=== PATIENT | female | born 1950 | race Caucasian/White ===

== ENCOUNTER 2016-10-29 18:19 | Inpatient (IN) | payer MEDICARE, OTHER ==
--- NOTE | ~2016-10-29 | CN ---
Consultation Report [facility] [address] [place]. [address] NAME: AAMIR HARRIS : 49 STATUS : ADM IN PAT#: [id number] AGE: 65 ADM/REG DATE : 10/29/16 MR#: [id number] REPORT SERV DATE: 11/07/16 DICTATED BY: MARIELLE RAMIREZ DATE: 11/06/16 REPORT STATUS : Draft TRANSCRIBED BY: MODL DATE: 11/06/16 CARDIOLOGY CONSULTATION DATE OF CONSULTATION: 11/06/2016 REASON FOR CONSULTATION: Possible ventricular tachycardia HISTORY OF PRESENT ILLNESS: The patient is a 65-year-old white female with a past medical history of hypertension, hyperlipidemia, obstructive sleep apnea, COPD, and diabetes, who unfortunately suffered a fall at home resulting in multiple fractures of her right upper extremity. On 10/22/2016, she underwent surgery by Dr. Dmitry Wise with ORIF of the distal radius and the right elbow fracture. She developed respiratory failure postoperatively and is currently in the ICU. She also developed acute kidney injury and has had to be placed on dialysis as well. Early this morning, the patient was noted to have some runs of nonsustained wide-complex tachycardia on the monitor. She has not had any further arrhythmias this afternoon. The patient's vital signs are currently stable, and she is intubated and sedated and in no distress. PAST MEDICAL HISTORY: Includes essential hypertension, hyperlipidemia, obstructive sleep apnea, chronic obstructive pulmonary disease, and diabetes mellitus. PAST SURGICAL HISTORY: Includes hysterectomy, laparoscopic cholecystectomy, appendectomy, tonsillectomy, anterior cervical disk fusion, gastric bypass, , and cardiac catheterization done recently on 06/02/2016. This cardiac cath showed normal coronary arteries and normal left ventricular contractility with an ejection fraction of 65%. SOCIAL HISTORY: The patient is a current smoker. She is . FAMILY HISTORY: Positive for stroke in her mother and liver cancer in her father. Her mother also had an [facility] and coronary artery disease. REVIEW OF SYSTEMS: Unable to be obtained due to the patient being intubated and sedated. PHYSICAL EXAMINATION: VITAL SIGNS: Blood pressure is 115/55, heart rate is 85 and regular showing sinus rhythm on the monitor, respirations are 17 on the ventilator, and temperature is 99.0. The patient is currently on Levophed at 0.03 mcg/kg per minute. GENERAL APPEARANCE: The patient is an obese white female, who is intubated and sedated, in no distress. HEENT: Unremarkable except for the support tubes in place. NECK: Also unremarkable. LUNGS: Clear to auscultation bilaterally. Diminished bases. CARDIOVASCULAR: PMI is nondisplaced. S1 is normal. S2 is narrowly split. No gallop is present. Consultation Report [facility] [id number] [place]. [address] NAME: AAMIR HARRIS : 49 STATUS : ADM IN [facility]#: [id number] AGE: 65 ADM/REG DATE : 10/29/16 MR#: [id number] REPORT SERV DATE: 11/07/16 DICTATED BY: MARIELLE RAMIREZ DATE: 11/06/16 REPORT STATUS : Draft TRANSCRIBED BY: JAXON DATE: 11/06/16 ABDOMEN: Soft and nontender with positive bowel sounds. EXTREMITIES: Show no cyanosis, clubbing, or edema. The right upper extremity has a cast in place. SKIN: Warm and dry with no pallor or icterus. NEURO/PSYCH: The patient is intubated and sedated. LABORATORY AND DIAGNOSTIC DATA: EKG shows normal sinus rhythm at a rate of 84 with Q-waves in the inferior leads suggesting an inferior scar as well as some nonspecific ST-T changes. Telemetry strips show some brief nonsustained runs of wide-complex tachycardia, which appears to be most consistent with ventricular tachycardia. The rate is regular, and there was no atrial arrhythmia noted underlying at baseline. Chemistry profile this morning shows a sodium of 141, potassium 3.9, BUN of 103, creatinine 4.17. Magnesium of 2.4 and phosphorus 7.0. Troponin levels are 0.08, 0.07, and 0.05. IMPRESSION: 1. Nonsustained ventricular tachycardia in the setting of acute illness. 2. History of hypertension. 3. Acute renal failure. 4. Postoperative respiratory failure in a patient with history of chronic obstructive pulmonary disease and obstructive sleep apnea. PLAN: 1. We will obtain an echocardiogram to re-evaluate the patient's left ventricular function. 2. Most likely, the patient will not require any specific treatment, although we may consider adding a beta-joana after the risk of hypotension has passed. Thank you very much for this consultation. I appreciate the opportunity to participate in this patient's care. TOPHER/JAXON Marielle Ramirez NP / [id number] CC: Amanda Gil MD UNKNOWN
--- NOTE | ~2016-10-29 | CN ---
Consultation Report [facility] [address] [place]. [address] NAME: AAMIR HARRIS : 49 STATUS : ADM IN [facility]#: [id number] AGE: 65 ADM/REG DATE : 10/29/16 MR#: [id number] REPORT SERV DATE: 11/06/16 DICTATED BY: GARRETT VELEZ DATE: 11/06/16 REPORT STATUS : Draft TRANSCRIBED BY: MODEnder DATE: 11/06/16 INFECTIOUS DISEASE CONSULTATION DATE OF CONSULTATION: 10/31/2016 LOCATION: MICU bed #4. REASON FOR CONSULTATION: Fevers. HISTORY OF PRESENT ILLNESS: This is a 65-year-old female with a past medical history notable for diabetes, obstructive sleep apnea, COPD, hyperlipidemia, bilateral total knee arthroplasties who was admitted to [facility] on 10/19/2016 after a fall at home which resulted in a complicated right upper extremity fracture with a comminuted proximal humerus fracture, comminuted proximal ulnar fracture, and radial head fracture, and intra-articular distal radius and ulnar styloid fracture. There was concern on admission for possible infection, and the patient was started on ceftriaxone and azithromycin. Chest x-rays did not show any clear pneumonia. Her white blood cell count on admission was 15,200. She underwent surgery by Dr. Dmitry Wise on 10/22/2016October with ORIF of the distal radius fracture and the right elbow fracture and right elbow radial head arthroplasty. The humerus fracture was not operated on at this time. The patient though postoperatively developed respiratory failure and was felt to possibly have a new pneumonia and developed fever, procalcitonin of 28, and worsening appearance of her chest x-ray. On 10/24/2016, her antibiotics were changed to vancomycin and Zosyn and she remains on those antibiotics. She also developed acute kidney injury and was transferred to [facility] on 10/29/2016 for dialysis. The patient's fevers have worsened since transfer with fever going up to 102.9 on 10/31/2016 and white blood cell count going up to 15.4. The procalcitonin is improved, but still at 8.16. The patient herself cannot add to the history at the present time. She has not developed any significant diarrhea. At [facility], there was concern about possible left total knee arthroplasty and infection based on some abnormalities on a plain x-ray. This led to a CT scan of the left lower extremity, which showed an intact cemented left total knee arthroplasty with patellar resurfacing and no evidence of loosening or periprosthetic fracture. PAST MEDICAL HISTORY: As outlined above. In addition, she has a history of a hysterectomy, laparoscopic cholecystectomy, appendectomy, tonsillectomy, anterior cervical disk fusion, gastric bypass, , and some nasal surgery. ALLERGIES: INCLUDE MORPHINE, FUROSEMIDE, PROMETHAZINE, DIPHENHYDRAMINE, AND HYDROCODONE. PRESENT MEDICATIONS: Include vancomycin and Zosyn as mentioned along with Xanax, Lexapro, Flonase, subcutaneous heparin, hydralazine, insulin, Habitrol, Protonix, Seroquel, and Zanaflex. SOCIAL HISTORY: She does smoke a few cigarettes a day, nondrinker, . Consultation Report [address] [place]. [address] NAME: AAMIR HARRIS : 49 STATUS : ADM IN [facility]#: [id number] AGE: 65 ADM/REG DATE : 10/29/16 MR#: [id number] REPORT SERV DATE: 11/06/16 DICTATED BY: GARRETT VELEZ DATE: 11/06/16 REPORT STATUS : Draft TRANSCRIBED BY: JAXON DATE: 11/06/16 FAMILY HISTORY: Notable for a stroke in her mother. Liver cancer in her father. REVIEW OF SYSTEMS: As outlined above. Otherwise, negative or difficult to obtain. PHYSICAL EXAMINATION: GENERAL: This is an obese female who is intubated. VITAL SIGNS: Blood pressure 134/63, pulse 97, maximum fever in the last 24 hours 102.9. She is on the ventilator. HEAD AND NECK: Other than her ventilated status is unremarkable. LUNGS: Show loud rhonchi and coarse breath sounds throughout. CARDIAC: Regular rate and rhythm. Normal S1, S2 without murmur, gallop, or rub. ABDOMEN: Obese, soft. Decreased bowel sounds. Nontender. EXTREMITIES: The patient has bilateral total knee arthroplasties. She has reasonable passive range of motion without evident pain, and there is no significant warmth over both knees. The patient has a PICC line in her left upper extremity covered by dressing. SKIN: Without rash. LABORATORY STUDIES: White blood cell count 15.4, hemoglobin 9.5, platelets 389. Albumin 2.6. Creatinine 3.66 (on dialysis). Arterial blood gas shows pH 7.38, pCO2 of 41, pO2 of 121 on 40% FiO2. Serial chest x-rays are reviewed. 10/31/2016 chest x-ray shows continued venous congestion with diffuse mixed interstitial and alveolar infiltrates, left greater than right, unchanged from previous day's film. MICROBIOLOGY STUDIES: On 10/23/2016, sputum culture grew yeast. On 10/25/2016, sputum culture grew yeast and normal chetan. Urine Legionella and pneumococcal antigens negative. 10/31/2016 sputum Gram stain less than 25 white blood cells, less than 25 epithelial cells, and culture pending. Urinalysis: Small leukocyte esterase, 30 white blood cells. Blood cultures pending. IMPRESSION: The source of the patient's fever is not clear. In addition, she has a persistent leukocytosis in the 11,000 to 15,000 range since her [facility] admission. Her procalcitonin is decreasing. I doubt at this point, she has an inadequately treated pneumonia. Certainly, she is at risk for candidemia. I also doubt total knee arthroplasty infection. PLAN: 1. We will add empiric fluconazole. 2. Likely can stop the vancomycin and Zosyn soon, but we will repeat her procalcitonin on 11/02/2016. 3. We will follow up on the urine, blood, and sputum cultures. Consultation Report [address] [place]. [address] NAME: AAMIR HARRIS : 49 STATUS : ADM IN [facility]#: [id number] AGE: 65 ADM/REG DATE : 10/29/16 MR#: [id number] REPORT SERV DATE: 11/06/16 DICTATED BY: GARRETT VELEZ DATE: 11/06/16 REPORT STATUS : Draft TRANSCRIBED BY: JAXON DATE: 11/06/16 AYANA/JAXON Garrett Velez M.D. / [id number] CC: Amanda Gil MD UNKNOWN
--- NOTE | ~2016-10-29 | HP ---
History And Physical [facility] [id number] [place]. [address] NAME: AAMIR HARRIS : 49 STATUS : ADM IN [facility]#: [id number] AGE: 65 ADM/REG DATE : 10/29/16 MR#: [id number] REPORT SERV DATE: 10/30/16 DICTATED BY: BARBI MEDELLIN DATE: 10/29/16 REPORT STATUS : Draft TRANSCRIBED BY: MODEnder DATE: 10/29/16 DATE OF ADMISSION: 10/29/2016 This is an acceptance H and P of Ms. Harris as she is being transferred from [facility] where she was seen by our partners. Ms. Harris was admitted because of a significant fall, had trauma with multiple fractures, underwent surgery, and had persistent postoperative respiratory failure, and her course was also complicated by acute kidney injury, now requiring renal replacement therapy, so she was transferred for renal replacement therapy while in the intensive care unit. She fell at home down approximately 7 steps, had fractures to her shoulders, elbow, and wrist, was found to have acute on chronic kidney disease with acute kidney injury on chronic kidney disease. Significant elevation of creatinine and potassium. She was taken to the OR, stabilized, but because of her COPD, thick secretions, and multiple other medical problems, she remained intubated. As noted above, she is being transferred for consideration of hemodialysis. Past Medical history, social history, and family history were all reviewed by our partners at [facility], but of note, she has significant COPD and is an active smoker, still smokes about four to five cigarettes a day at the time of admission. Review of 10 systems cannot be obtained since the patient is intubated, sedated, on mechanical ventilation. PHYSICAL EXAMINATION: GENERAL: On exam today, on arrival, she is sedated, intubated, on mechanical ventilation. HEENT: Normocephalic and atraumatic. NECK: Supple. No lymphadenopathy. No JVD. CHEST: Symmetrical with good expansion bilaterally. She has bilateral crackles throughout. CARDIOVASCULAR: She has S1 and S2, which are regular in rate and rhythm. ABDOMEN: Benign but obese. EXTREMITIES: She has some edema. No clubbing. No cyanosis. ASSESSMENT AND PLAN: 1. Respiratory failure. She has a combination of postoperative respiratory failure complicated by acute on chronic kidney disease and underlying chronic obstructive pulmonary disease, obstructive sleep apnea, tobacco abuse up to the time of admission. She will remain on mechanical ventilation now. We will have switched her to pressure cycled ventilation because of high pressures requiring fairly low tidal volumes. We reduced her PEEP since she is still saturating fairly well on 50% FiO2. She will remain on bronchodilator protocol and her other maintenance medications from this admission thus far. 2. She has acute kidney injury and Nephrology has been seeing her in consultation at the [facility] and has orders to initiate hemodialysis. The patient will be monitored and will remain on deep venous thrombosis and gastrointestinal prophylaxis. Care was discussed with nursing staff tonight on arrival. History And Physical [address] [address] NAME: AAMIR HARRIS : 49 STATUS : ADM IN [facility]#: [id number] AGE: 65 ADM/REG DATE : 10/29/16 MR#: [id number] REPORT SERV DATE: 10/30/16 DICTATED BY: BARBI MEDELLIN DATE: 10/29/16 REPORT STATUS : Draft TRANSCRIBED BY: JAXON DATE: 10/29/16 CRISTOPHER/JAXON Barbi Medellin M.D. / [id number] CC: Amanda Gil MD
--- NOTE | ~2016-10-29 | DS ---
Discharge Summary [facility] [address] [place]. [address] NAME: AAMIR HARRIS : 49 STATUS : DIS IN PAT#: [id number] AGE: 65 ADM/REG DATE : 10/29/16 MR#: [id number] REPORT SERV DATE: 12/19/16 DICTATED BY: DONN EVANS DATE: 12/19/16 REPORT STATUS : Draft TRANSCRIBED BY: MODL DATE: 12/19/16 ADMISSION DATE: 10/29/2016 DISCHARGE DATE: 11/15/2016 SUMMARY DATE OF : 11/15/2016. DIAGNOSES: 1. Acute hypercapnic and hypoxic respiratory failure. 2. Acute respiratory distress syndrome. 3. Stenotrophomonas pneumonia. 4. Shock. 5. Acute renal failure. 6. Deep venous thrombosis. 7. Rosalina urinary tract infection. 8. Type 2 diabetes. SUMMARY: Please see dictated history and physical, consult notes and interim discharge summaries as well as the patient's chart with progress notes for full history of presentation and hospital course. BRIEF SUMMARY: The patient was a 65-year-old white female with a past medical history of COPD, who initially was admitted to [facility] after she fell and suffered multiple fractures. Her hospital course there was complicated by persistent postoperative respiratory failure as well as acute renal failure. The patient was transferred to our facility on 10/29/2016 for continuous renal replacement therapy. Here, she had a complicated ICU course and developed persistent acute hypercapnic and hypoxic respiratory failure with acute respiratory distress syndrome as well as Stenotrophomonas pneumonia and was unable to be weaned from the ventilator. She also had several other acute issues such as shock, acute renal failure, a DVT, a Rosalina urinary tract infection. The patient continued to do poorly over several weeks in the ICU as she was unable to be weaned from the ventilator. She was also unable to come off continuous renal replacement therapy over this time as well. After being on the ventilator for several weeks, she was still requiring very high ventilator support. The family understood that she was not going to do well. They decided to make her a do not resuscitate and withdrew care on 11/15/2016. The patient in the MICU and the patient's family was at bedside and grieving appropriately. GEO/JAXON Donn Evans MD / [id number] Discharge Summary [facility] [address] [place]. [address] NAME: AAMIR HARRIS : 48 STATUS : DIS IN PAT#: [id number] AGE: 65 ADM/REG DATE : 10/29/16 MR#: [id number] REPORT SERV DATE: 12/19/16 DICTATED BY: DONN EVANS DATE: 12/19/16 REPORT STATUS : Draft TRANSCRIBED BY: JAXON DATE: 12/19/16 CC: Amanda Gil MD
--- NOTE | ~2016-10-29 | IDS ---
Interim Discharge Summary [facility] [address] [place]. [address] NAME: AAMIR HARRIS : 48 STATUS : ADM IN PAT#: [id number] AGE: 65 ADM/REG DATE : 10/29/16 MR#: [id number] REPORT SERV DATE: 11/14/16 DICTATED BY: KIRA FOLEY DATE: 11/14/16 REPORT STATUS : Draft TRANSCRIBED BY: MODL DATE: 11/14/16 ADMISSION DATE: 10/29/2016 DISCHARGE DATE: This is a 65-year-old patient, who was admitted to the [facility] on the 10/19 after she suffered a fall and had a broken wrist, elbow, and shoulder fracture. She was seen by Dr. Dmitry Wise and actually had a repair of the wrist and elbow, put in a splint, and then the shoulder fracture still remains. The patient was hypoxic postoperatively, was seen by Dr. Pelletier. She unfortunately failed extubation and required re-intubation, and there was some concern about a pneumonia since thick pulmonary secretions were noted. The patient carries a diagnosis of COPD and has a long history of smoking and had ongoing smoking even prior to her admission at [facility]. The patient was transferred to this facility, mostly to initiate dialysis, and she developed CELESTINO. Upon arrival here, the patient was noted to be febrile despite being on antibiotics, Zosyn and vancomycin. Infectious Diseases were consulted and have been following her since she was transferred here. So, a Vas-Cath was placed by Vascular Surgery, and the patient underwent intermittent dialysis at first. Dr. Velez saw the patient, continued the vancomycin and Zosyn with addition of empiric fluconazole that was added at 200 mg a day. The patient has been re-cultured multiple times during her hospitalization here, and all blood cultures that have been done so far including 10/31, 11/04, 11/09, 11/11, and 11/13 are all negative. The patient does have a right PICC line that she has had since her transfer here. Unfortunately, there is limited space for another PICC line since she has the right arm in a cast; so, if this line needs to be removed for any reason, she will probably need at least a left IJ but so far, we have been able to use the PICC line. Other cultures including stool for C. diff which was negative; respiratory cultures, the only positive culture was that from the that grew out Stenotrophomonas maltophilia and is currently being treated with Bactrim since the patient continued to have fevers and leukocytosis. Urine cultures have not grown anything bacterial but did grow out Rosalina glabrata from culture on 11/11. The patient seemed to slowly improve; however, over this past weekend, the patient then continued to worsen, became more hypoxic, difficult to oxygenate, cultures remained negative, repeat urine Legionella antigen was sent and was negative; however, lower extremity Dopplers did show that the patient had a right femoral DVT. Because of this finding, the patient was started on heparin and actually has made some improvement with regard to her oxygenation. That being said, the patient did require paralytics and sedation in order to improve her oxygenation. So far, as of today, the , she is down to an FiO2 of 50% and PEEP of 10, and we will continue to wean the FiO2 followed by the PEEP. So, it is possible that the patient might have had a pulmonary embolus. Bedside quick look echo was done, showed no pericardial effusion. To my examination, the right ventricle did not seem to be markedly enlarged. 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 She has been on and off Levophed and was started on stress-dose steroids, Solu-Cortef 100 mg IV q.8 since the . Today on the , she actually is off Levophed, and I will begin at a slow Solu-Cortef taper. Interim Discharge Summary [address] [place]. [address] NAME: AAMIR HARRIS : 48 STATUS : ADM [facility]#: [id number] AGE: 65 ADM/REG DATE : 10/29/16 MR#: [id number] REPORT SERV DATE: 11/14/16 DICTATED BY: KIRA FOLEY DATE: 11/14/16 REPORT STATUS : Draft TRANSCRIBED BY: MODEnder DATE: 11/14/16 Leukocytosis continues to improve today, so will stay the course of antibiotics and lead change of any antibiotic therapy to Infectious Diseases. The patient has a history of smoking, COPD, and AMARIS. Continue bronchodilator protocol. There have been issues with anemia in this patient. She has been started on the heparin. We are not able to transport her for any CT scan, and given her renal function, she is really not a candidate for CTA and this would not make a difference in treatment of her DVT. So, we will stay the course with the heparin and eventually transition her to Coumadin. We did have to transfuse some blood over the last few days, but her hemoglobin seems to have stabilized, and we will continue to follow that. Diabetes mellitus type 2. She is on a sliding insulin scale. ENT has been consulted, Dr. Luis Daniel Torres, who has been by to check on the patient several times since she more than likely will need a tracheostomy if she continues to improve and because of her high O2 requirements and PEEP, this was not feasible over this past week but may be if she continues to improve and they will need to be notified. Code status has been discussed with the daughter at great length, and currently, the patient is a no shock, no CPR, and no medications to treat life-threatening arrhythmias. We are to continue all supportive care and can add extra pressors if needed, with the caveat that if she continues to deteriorate and is not responsive to further therapy, discussion then would have to be had with the daughter to see if we could either withdraw care or not. This has been discussed with them at length on several occasions including the whole family. So, this is a summary of this patient's hospital course, thus far. There seems to be some improvement, and so I would recommend to at least continue current care throughout the weekend, and if she continues to improve, consider tracheostomy and further aggressive care. /MODEnder Kira Foley M.D. / [id number]
[~2016-10-29 18:19] MED LIST: C5; CALTRAT600 PO; COZ50 PO; DSS PO; FLEX PO; FLEXERIL5 MG PO; FLONASE NAS; FORTAMET500 MG PO; GLUMETZA500 MG PO; IRON325 MG PO; KLOR-CON M2020 MEQ PO; LEXAPRO20 PO; MOBIC15 MG PO; NEXIUM40 PO; PCET PO; PLAVIX PO; PRAVACHOL40 MG PO; PREM.3B PO; PRIN20 PO; PROAIR HFA INH; SEROQUEL XR150 MG PO; SYMBICORT 160/41 INH INH; ULTRAM50 PO; VITD PO; X5 PO; XANAX1 MG PO; ZANAFLEX 4 MG TA4 MG PO; ZOFRAN4 PO; [UNRECOGNIZED DRUG - OTHER]; [UNRECOGNIZED DRUG - OTHER] PO
[2016-10-30 03:47] LABS: CARBOXYHEMOGLOBIN 1.5 % (0-3); HCO3 (ACTUAL BICARBONATE) 22.3 MEQ/L (23-27); HEMOBLOGIN CONTENT 8.1 G/DL (12-16); INSTRUMENT SERIAL # 8083; METHEMOGLOBIN 0.3 % (0-3); O2 CONTENT 11.2 VOL% (18-24); PCO2 (CO2 TENSION) 41 MMHG (35-45); PO2 (O2 TENSION) 118 MMHG (79-93); SAMPLE Arterial; pH 7.36 (7.37-7.43)
[2016-10-30 03:48] LABS: ALLENS TEST Pos; MODE PCV +30; OPERATOR ID 32193
[2016-10-30 05:02] LABS: HEMATOCRIT 25.4 % (36.0-48.0); HEMOGLOBIN 8.4 g/dL (12.0-16.0); MEAN CORPUSCULAR HEMOGLOB 30.3 pg (26.0-34.0); PLATELET COUNT 295 10/3/uL (150-400); RBC DISTRIBUTION WIDTH 15.9 % (12.0-16.0); RED CELL COUNT 2.77 10/6/uL (4.0-5.6); WHITE BLOOD CELLS 11.6 10/3/uL (4.5-10.5)
[2016-10-30 05:09] LABS: MANUAL DIFF YES %; MEAN CORPUS HGB CONC 33.1 g/dL (32.0-36.0); MEAN CORPUSCULAR VOLUME 91.7 fL (80-100)
[2016-10-30 05:10] LABS: CALCIUM, SERUM 9.1 MG/DL (8.5-10.4); CHLORIDE, SERUM 106 MMOL/L (96-112); CO2 (CARBON DIOXIDE) 24 MMOL/L (24-34); GFR AFRICAN AMERICAN 10 ML/MIN (>=60); GFR NON AFRICAN AMERICAN 9 ML/MIN (>=60); GLUCOSE, SERUM 119 MG/DL (60-99); PHOSPHORUS, SERUM 7.6 MG/DL (2.5-4.5); POTASSIUM, SERUM 3.8 MMOL/L (3.5-5.3); SODIUM, SERUM 145 MMOL/L (135-148)
[2016-10-30 05:11] LABS: BUN (BLOOD UREA NITROGEN) 113 MG/DL (6-23); CREATININE 4.88 MG/DL (0.55-1.02)
[2016-10-30 06:29] LABS: BAND NEUTROPHILS 10 %; BASOPHILS 1 %; BASOPHILS ABSOLUTE (CALC) 0.12 10/3/uL (0.0-0.16); EOSINOPHILS 1 %; EOSINOPHILS ABSOLUTE (CALC) 0.12 10/3/uL (0.0-0.53); IMMATURE GRANS ABSOLUTE (CALC) 0.46 10/3/uL (0.0-0.11); LYMPHOCYTES 22 %; LYMPHOCYTES ABSOLUTE (CALC) 2.55 10/3/uL (0.67-4.30); METAMYELOCYTES 3 %; MONOCYTES 10 %; MONOCYTES ABSOLUTE (CALC) 1.16 10/3/uL (0.21-1.20); MYELOCYTES 1 %; NEUTROPHILS ABSOLUTE (CALC) 7.19 10/3/uL (2.02-8.40); PLATELET ESTIMATE ADQ (ADEQUATE); POLYCHROMASIA 1+ (2-5/OIF) (0-1/OIF); SEGMENTED NEUTROPHIL (0) 52 %; TOTAL NUCLEATED CELLS 100
[2016-10-30 06:30] LABS: HELMET CELLS OCC (0-2/OIF); TARGET CELLS OCC (1-2/OIF) (0-1/OIF); TOXIC GRANULATION SLT; VACUOLATED NEUTROPHILES OCC
[2016-10-30 06:35] LABS: VANCOMYCIN TROUGH 20.9 MCG/ML (10.0-20.0)
[2016-10-31 04:33] LABS: ALLENS TEST Pos; BE (BASE EXCESS) -2.3 MEQ/L (0 +/- 2.5); CARBOXYHEMOGLOBIN 0.6 % (0-3); HCO3 (ACTUAL BICARBONATE) 22.6 MEQ/L (23-27); HEMOBLOGIN CONTENT 9.6 G/DL (12-16); INSTRUMENT SERIAL # 8083; METHEMOGLOBIN 0.4 % (0-3); MODE PCV 30; O2 CONTENT 13.4 VOL% (18-24); OPERATOR ID 14661; PCO2 (CO2 TENSION) 40 MMHG (35-45); PO2 (O2 TENSION) 127 MMHG (79-93); SAMPLE Arterial; pH 7.37 (7.37-7.43)
[2016-10-31 04:49] LABS: ALBUMIN 2.6 G/DL (3.5-5.0); CALCIUM, SERUM 9.3 MG/DL (8.5-10.4); CHLORIDE, SERUM 106 MMOL/L (96-112); CO2 (CARBON DIOXIDE) 23 MMOL/L (24-34); POTASSIUM, SERUM 4.2 MMOL/L (3.5-5.3); SODIUM, SERUM 146 MMOL/L (135-148)
[2016-10-31 04:55] LABS: BUN (BLOOD UREA NITROGEN) 84 MG/DL (6-23); CREATININE 3.66 MG/DL (0.55-1.02); GFR AFRICAN AMERICAN 14 ML/MIN (>=60); GFR NON AFRICAN AMERICAN 12 ML/MIN (>=60); GLUCOSE, SERUM 158 MG/DL (60-99); PHOSPHORUS, SERUM 5.9 MG/DL (2.5-4.5)
[2016-10-31 05:58] LABS: PROCALCITONIN 8.16 ng/mL (<0.5)
[2016-10-31 07:32] LABS: HEMOGLOBIN 9.5 g/dL (12.0-16.0); MEAN CORPUS HGB CONC 32.8 g/dL (32.0-36.0); MEAN CORPUSCULAR HEMOGLOB 31.1 pg (26.0-34.0); MEAN PLATELET VOLUME 9.2 fL (9.2-13.0); NUCLEATED RED BLOOD CELLS 0.2 /100WBC (0-0); RBC DISTRIBUTION WIDTH 16.1 % (12.0-16.0); RED CELL COUNT 3.05 10/6/uL (4.0-5.6); WHITE BLOOD CELLS 15.4 10/3/uL (4.5-10.5)
[2016-10-31 07:33] LABS: MANUAL DIFF YES %; MEAN CORPUSCULAR VOLUME 95.1 fL (80-100); PLATELET COUNT 389 10/3/uL (150-400)
[2016-10-31 08:01] LABS: BAND NEUTROPHILS 4 %; BURR CELLS 1+ (3-10/OIF) (0-2/OIF); EOSINOPHILS 2 %; EOSINOPHILS ABSOLUTE (CALC) 0.31 10/3/uL (0.0-0.53); IMMATURE GRANS ABSOLUTE (CALC) 0.31 10/3/uL (0.0-0.11); LYMPHOCYTES 16 %; LYMPHOCYTES ABSOLUTE (CALC) 2.46 10/3/uL (0.67-4.30); METAMYELOCYTES 2 %; MONOCYTES 10 %; MONOCYTES ABSOLUTE (CALC) 1.54 10/3/uL (0.21-1.20); NEUTROPHILS ABSOLUTE (CALC) 10.78 10/3/uL (2.02-8.40); PLATELET ESTIMATE ADQ (ADEQUATE); POIKILOCYTOSIS 1+ (5-10/OIF) (0-5/OIF); SEGMENTED NEUTROPHIL (0) 66 %; TOTAL NUCLEATED CELLS 100
[2016-10-31 09:11] LABS: HEPATITIS B SURFACE ANTIGEN NON-REACTIVE (NON-REACT)
[2016-10-31 09:39] LABS: HEPATITIS B CORE AB IGM NON-REACTIVE (NON-REAC); HEPATITIS C ANTIBODY NON-REACTIVE (NON-REACT)
[2016-10-31 09:40] LABS: HIV COMBO NON-REACTIVE (NON REAC)
[2016-10-31 09:41] LABS: HEP A ANTIBODY IGM NON-REACTIVE (NON-REACT)
[2016-10-31 14:10] LABS: ASCORBIC ACID (UR NOT ORDER) NEG (NEG); BILIRUBIN, URINE NEGATIVE (NEG); KETONE, URINE NEGATIVE (NEG); LEUKOCYTE ESTERASE(NOT OR SMALL (NEG); WBC (NOT ORDERED) (RFLEX) 30 (0-5)
[2016-10-31 15:15] LABS: ALLENS TEST Pos; BE (BASE EXCESS) -1.4 MEQ/L (0 +/- 2.5); CARBOXYHEMOGLOBIN 0.8 % (0-3); HCO3 (ACTUAL BICARBONATE) 23.5 MEQ/L (23-27); HEMOBLOGIN CONTENT 12.5 G/DL (12-16); INSTRUMENT SERIAL # 8083; METHEMOGLOBIN 0.3 % (0-3); O2 CONTENT 17.3 VOL% (18-24); PCO2 (CO2 TENSION) 41 MMHG (35-45); PO2 (O2 TENSION) 121 MMHG (79-93); SAMPLE Arterial; pH 7.38 (7.37-7.43)
[2016-11-01 03:51] LABS: ALLENS TEST Pos; BE (BASE EXCESS) -3.2 MEQ/L (0 +/- 2.5); CARBOXYHEMOGLOBIN 0.5 % (0-3); HCO3 (ACTUAL BICARBONATE) 22.7 MEQ/L (23-27); INSTRUMENT SERIAL # 8083; METHEMOGLOBIN 0.3 % (0-3); MODE PCV; O2 CONTENT 12.7 VOL% (18-24); OPERATOR ID 33214; PCO2 (CO2 TENSION) 45 MMHG (35-45); PO2 (O2 TENSION) 140 MMHG (79-93); SAMPLE Arterial; pH 7.33 (7.37-7.43)
[2016-11-01 04:26] LABS: BASOPHILS 0.6 %; BASOPHILS ABSOLUTE 0.09 10/3/uL (0.0-0.16); EOSINOPHILS 1.5 %; EOSINOPHILS ABSOLUTE 0.21 10/3/uL (0.0-0.53); HEMATOCRIT 28.2 % (36.0-48.0); HEMOGLOBIN 9.4 g/dL (12.0-16.0); IMMATURE GRANULOCYTES ABSOLUTE 0.43 10/3/uL (0.0-0.11); LYMPHOCYTES ABSOLUTE 3.04 10/3/uL (0.67-4.30); MEAN CORPUS HGB CONC 33.3 g/dL (32.0-36.0); MEAN CORPUSCULAR VOLUME 95.9 fL (80-100); MEAN PLATELET VOLUME 9.9 fL (9.2-13.0); MONOCYTES 9.6 %; MONOCYTES ABSOLUTE 1.39 10/3/uL (0.21-1.20); NEUTROPHILS 64.3 %; NEUTROPHILS ABSOLUTE 9.31 10/3/uL (2.02-8.40); PLATELET COUNT 453 10/3/uL (150-400); RBC DISTRIBUTION WIDTH 16.3 % (12.0-16.0); RED CELL COUNT 2.94 10/6/uL (4.0-5.6); WHITE BLOOD CELLS 14.5 10/3/uL (4.5-10.5)
[2016-11-01 04:27] LABS: MANUAL DIFF NO %
[2016-11-01 04:39] LABS: ALBUMIN 2.8 G/DL (3.5-5.0); CALCIUM, SERUM 9.7 MG/DL (8.5-10.4); CHLORIDE, SERUM 103 MMOL/L (96-112); CO2 (CARBON DIOXIDE) 24 MMOL/L (24-34); CREATININE 3.34 MG/DL (0.55-1.02); GFR AFRICAN AMERICAN 16 ML/MIN (>=60); GFR NON AFRICAN AMERICAN 14 ML/MIN (>=60); GLUCOSE, SERUM 148 MG/DL (60-99); SODIUM, SERUM 144 MMOL/L (135-148)
[2016-11-01 04:40] LABS: BUN (BLOOD UREA NITROGEN) 79 MG/DL (6-23); PHOSPHORUS, SERUM 7.8 MG/DL (2.5-4.5); POTASSIUM, SERUM 4.5 MMOL/L (3.5-5.3)
[2016-11-01 05:13] LABS: PROCALCITONIN 7.15 ng/mL (<0.5)
[2016-11-02 03:43] LABS: BE (BASE EXCESS) -5.1 MEQ/L (0 +/- 2.5); CARBOXYHEMOGLOBIN 0.1 % (0-3); HCO3 (ACTUAL BICARBONATE) 20.3 MEQ/L (23-27); HEMOBLOGIN CONTENT 10.5 G/DL (12-16); INSTRUMENT SERIAL # 8083; METHEMOGLOBIN 0.4 % (0-3); MODE PCV; O2 CONTENT 14.6 VOL% (18-24); OPERATOR ID 23712; PCO2 (CO2 TENSION) 39 MMHG (35-45); PO2 (O2 TENSION) 119 MMHG (79-93); SAMPLE Arterial; pH 7.34 (7.37-7.43)
[2016-11-02 05:39] LABS: CALCIUM, SERUM 9.3 MG/DL (8.5-10.4); CHLORIDE, SERUM 103 MMOL/L (96-112); CO2 (CARBON DIOXIDE) 21 MMOL/L (24-34); GFR AFRICAN AMERICAN 13 ML/MIN (>=60); GFR NON AFRICAN AMERICAN 11 ML/MIN (>=60); GLUCOSE, SERUM 136 MG/DL (60-99); PHOSPHORUS, SERUM 7.1 MG/DL (2.5-4.5); POTASSIUM, SERUM 4.7 MMOL/L (3.5-5.3); SODIUM, SERUM 141 MMOL/L (135-148)
[2016-11-02 05:40] LABS: BASOPHILS 0.7 %; BASOPHILS ABSOLUTE 0.13 10/3/uL (0.0-0.16); EOSINOPHILS 1.5 %; HEMATOCRIT 30.7 % (36.0-48.0); HEMOGLOBIN 10.1 g/dL (12.0-16.0); IMMATURE GRANULOCYTES 2.3 %; IMMATURE GRANULOCYTES ABSOLUTE 0.46 10/3/uL (0.0-0.11); LYMPHOCYTES 22.6 %; MEAN CORPUS HGB CONC 32.9 g/dL (32.0-36.0); MEAN CORPUSCULAR HEMOGLOB 31.6 pg (26.0-34.0); MEAN CORPUSCULAR VOLUME 95.9 fL (80-100); MEAN PLATELET VOLUME 9.6 fL (9.2-13.0); MONOCYTES 8.7 %; MONOCYTES ABSOLUTE 1.73 10/3/uL (0.21-1.20); NEUTROPHILS 64.2 %; NEUTROPHILS ABSOLUTE 12.76 10/3/uL (2.02-8.40); NUCLEATED RED BLOOD CELLS 0.2 /100WBC (0-0); PLATELET COUNT 419 10/3/uL (150-400); RBC DISTRIBUTION WIDTH 15.9 % (12.0-16.0); WHITE BLOOD CELLS 19.9 10/3/uL (4.5-10.5)
[2016-11-02 05:41] LABS: BUN (BLOOD UREA NITROGEN) 93 MG/DL (6-23); CREATININE 3.88 MG/DL (0.55-1.02); MANUAL DIFF NO %
[2016-11-03 03:40] LABS: BE (BASE EXCESS) -9.9 MEQ/L (0 +/- 2.5); CARBOXYHEMOGLOBIN 0.6 % (0-3); HCO3 (ACTUAL BICARBONATE) 16.1 MEQ/L (23-27); INSTRUMENT SERIAL # 8083; METHEMOGLOBIN 0.2 % (0-3); PCO2 (CO2 TENSION) 36 MMHG (35-45); PO2 (O2 TENSION) 121 MMHG (79-93); pH 7.27 (7.37-7.43)
[2016-11-03 03:41] LABS: HEMOBLOGIN CONTENT 9.5 G/DL (12-16); MODE PCV; O2 CONTENT 13.2 VOL% (18-24); OPERATOR ID 23712; SAMPLE Arterial
[2016-11-03 06:01] LABS: BASOPHILS 0.2 %; BASOPHILS ABSOLUTE 0.05 10/3/uL (0.0-0.16); EOSINOPHILS 0.5 %; EOSINOPHILS ABSOLUTE 0.12 10/3/uL (0.0-0.53); HEMATOCRIT 27.9 % (36.0-48.0); IMMATURE GRANULOCYTES 1.3 %; IMMATURE GRANULOCYTES ABSOLUTE 0.28 10/3/uL (0.0-0.11); LYMPHOCYTES 11.5 %; LYMPHOCYTES ABSOLUTE 2.52 10/3/uL (0.67-4.30); MANUAL DIFF NO %; MEAN CORPUS HGB CONC 32.3 g/dL (32.0-36.0); MEAN CORPUSCULAR HEMOGLOB 30.4 pg (26.0-34.0); MEAN CORPUSCULAR VOLUME 94.3 fL (80-100); MEAN PLATELET VOLUME 9.9 fL (9.2-13.0); MONOCYTES 4.6 %; MONOCYTES ABSOLUTE 1.01 10/3/uL (0.21-1.20); NEUTROPHILS 81.9 %; NEUTROPHILS ABSOLUTE 17.84 10/3/uL (2.02-8.40); PLATELET COUNT 369 10/3/uL (150-400); RBC DISTRIBUTION WIDTH 16.2 % (12.0-16.0); RED CELL COUNT 2.96 10/6/uL (4.0-5.6); WHITE BLOOD CELLS 21.8 10/3/uL (4.5-10.5)
[2016-11-03 06:11] LABS: A/G RATIO 0.7 (0.7-1.9); ALKALINE PHOSPHATASE 121 U/L (45-117); BUN (BLOOD UREA NITROGEN) 147 MG/DL (6-23); CALCIUM, SERUM 8.9 MG/DL (8.5-10.4); CHLORIDE, SERUM 100 MMOL/L (96-112); CO2 (CARBON DIOXIDE) 16 MMOL/L (24-34); CREATININE 5.35 MG/DL (0.55-1.02); GFR AFRICAN AMERICAN 9 ML/MIN (>=60); GFR NON AFRICAN AMERICAN 8 ML/MIN (>=60); GLOBULIN 4.3 G/DL (2.5-4.1); GLUCOSE, SERUM 139 MG/DL (60-99); POTASSIUM, SERUM 5.2 MMOL/L (3.5-5.3); SGOT(AST) 98 U/L (5-40); SGPT(ALT) 74 U/L (5-65); SODIUM, SERUM 138 MMOL/L (135-148); TOTAL BILIRUBIN 0.7 MG/DL (0-1.2); TOTAL PROTEIN 7.3 G/DL (6.0-8.5)
[2016-11-03 07:47] LABS: PROCALCITONIN 4.91 ng/mL (<0.5)
[2016-11-03 16:29] LABS: PREALBUMIN 25.7 MG/DL (17.0-43.0)
[2016-11-04 05:40] LABS: BASOPHILS 0.4 %; BASOPHILS ABSOLUTE 0.08 10/3/uL (0.0-0.16); EOSINOPHILS 0.8 %; EOSINOPHILS ABSOLUTE 0.16 10/3/uL (0.0-0.53); HEMATOCRIT 27.6 % (36.0-48.0); HEMOGLOBIN 9.2 g/dL (12.0-16.0); IMMATURE GRANULOCYTES 1.3 %; IMMATURE GRANULOCYTES ABSOLUTE 0.27 10/3/uL (0.0-0.11); LYMPHOCYTES 15.6 %; LYMPHOCYTES ABSOLUTE 3.28 10/3/uL (0.67-4.30); MEAN CORPUS HGB CONC 33.3 g/dL (32.0-36.0); MEAN CORPUSCULAR HEMOGLOB 31.5 pg (26.0-34.0); MEAN CORPUSCULAR VOLUME 94.5 fL (80-100); MEAN PLATELET VOLUME 9.7 fL (9.2-13.0); MONOCYTES 4.9 %; MONOCYTES ABSOLUTE 1.04 10/3/uL (0.21-1.20); NEUTROPHILS ABSOLUTE 16.24 10/3/uL (2.02-8.40); PLATELET COUNT 395 10/3/uL (150-400); RBC DISTRIBUTION WIDTH 15.7 % (12.0-16.0); RED CELL COUNT 2.92 10/6/uL (4.0-5.6); WHITE BLOOD CELLS 21.1 10/3/uL (4.5-10.5)
[2016-11-04 05:41] LABS: MANUAL DIFF NO %
[2016-11-04 05:46] LABS: CALCIUM, SERUM 9.2 MG/DL (8.5-10.4); CHLORIDE, SERUM 103 MMOL/L (96-112); CO2 (CARBON DIOXIDE) 16 MMOL/L (24-34); GFR AFRICAN AMERICAN 11 ML/MIN (>=60); GFR NON AFRICAN AMERICAN 9 ML/MIN (>=60); GLUCOSE, SERUM 144 MG/DL (60-99); PHOSPHORUS, SERUM 7.7 MG/DL (2.5-4.5); POTASSIUM, SERUM 4.7 MMOL/L (3.5-5.3); SODIUM, SERUM 139 MMOL/L (135-148)
[2016-11-04 05:48] LABS: BUN (BLOOD UREA NITROGEN) 116 MG/DL (6-23)
[2016-11-04 09:49] LABS: ASCORBIC ACID (UR NOT ORDER) 40 (NEG); BILIRUBIN, URINE NEGATIVE (NEG); KETONE, URINE NEGATIVE (NEG); LEUKOCYTE ESTERASE(NOT OR MOD (NEG)
[2016-11-04 09:50] LABS: WBC (NOT ORDERED) (RFLEX) > 182 (0-5)
[2016-11-05 04:55] LABS: BASOPHILS 0.4 %; BASOPHILS ABSOLUTE 0.09 10/3/uL (0.0-0.16); CALCIUM, SERUM 8.7 MG/DL (8.5-10.4); CHLORIDE, SERUM 99 MMOL/L (96-112); EOSINOPHILS 1.2 %; GLUCOSE, SERUM 142 MG/DL (60-99); HEMATOCRIT 26.4 % (36.0-48.0); HEMOGLOBIN 8.7 g/dL (12.0-16.0); IMMATURE GRANULOCYTES 1.7 %; IMMATURE GRANULOCYTES ABSOLUTE 0.42 10/3/uL (0.0-0.11); LYMPHOCYTES 15.4 %; LYMPHOCYTES ABSOLUTE 3.76 10/3/uL (0.67-4.30); MEAN CORPUSCULAR HEMOGLOB 30.7 pg (26.0-34.0); MEAN CORPUSCULAR VOLUME 93.3 fL (80-100); MEAN PLATELET VOLUME 10.1 fL (9.2-13.0); MONOCYTES 4.7 %; MONOCYTES ABSOLUTE 1.15 10/3/uL (0.21-1.20); NEUTROPHILS 76.6 %; NEUTROPHILS ABSOLUTE 18.64 10/3/uL (2.02-8.40); PLATELET COUNT 466 10/3/uL (150-400); RED CELL COUNT 2.83 10/6/uL (4.0-5.6); SODIUM, SERUM 139 MMOL/L (135-148); WHITE BLOOD CELLS 24.4 10/3/uL (4.5-10.5)
[2016-11-05 04:56] LABS: CO2 (CARBON DIOXIDE) 14 MMOL/L (24-34); CREATININE 5.85 MG/DL (0.55-1.02); GFR AFRICAN AMERICAN 8 ML/MIN (>=60); GFR NON AFRICAN AMERICAN 7 ML/MIN (>=60)
[2016-11-05 04:57] LABS: MANUAL DIFF NO %
[2016-11-05 05:51] LABS: BUN (BLOOD UREA NITROGEN) 162 MG/DL (6-23); PHOSPHORUS, SERUM 10.5 MG/DL (2.5-4.5)
[2016-11-06 00:21] LABS: ALLENS TEST Pos; BE (BASE EXCESS) -4.3 MEQ/L (0 +/- 2.5); CARBOXYHEMOGLOBIN 0.6 % (0-3); HCO3 (ACTUAL BICARBONATE) 19.8 MEQ/L (23-27); HEMOBLOGIN CONTENT 9.5 G/DL (12-16); INSTRUMENT SERIAL # 8083; METHEMOGLOBIN 0.2 % (0-3); MODE PCV; O2 CONTENT 13.3 VOL% (18-24); OPERATOR ID 13861; PCO2 (CO2 TENSION) 33 MMHG (35-45); PO2 (O2 TENSION) 120 MMHG (79-93); SAMPLE Arterial
[2016-11-06 04:15] LABS: BASOPHILS 0.5 %; EOSINOPHILS 1.6 %; EOSINOPHILS ABSOLUTE 0.32 10/3/uL (0.0-0.53); HEMATOCRIT 27.9 % (36.0-48.0); HEMOGLOBIN 9.4 g/dL (12.0-16.0); IMMATURE GRANULOCYTES 1.7 %; IMMATURE GRANULOCYTES ABSOLUTE 0.34 10/3/uL (0.0-0.11); LYMPHOCYTES 15.2 %; LYMPHOCYTES ABSOLUTE 2.95 10/3/uL (0.67-4.30); MEAN CORPUS HGB CONC 33.7 g/dL (32.0-36.0); MEAN CORPUSCULAR HEMOGLOB 31.9 pg (26.0-34.0); MEAN CORPUSCULAR VOLUME 94.6 fL (80-100); MEAN PLATELET VOLUME 9.7 fL (9.2-13.0); MONOCYTES 6.9 %; MONOCYTES ABSOLUTE 1.35 10/3/uL (0.21-1.20); NEUTROPHILS 74.1 %; NEUTROPHILS ABSOLUTE 14.41 10/3/uL (2.02-8.40); PLATELET COUNT 450 10/3/uL (150-400); RBC DISTRIBUTION WIDTH 15.8 % (12.0-16.0); RED CELL COUNT 2.95 10/6/uL (4.0-5.6); WHITE BLOOD CELLS 19.5 10/3/uL (4.5-10.5)
[2016-11-06 04:23] LABS: MANUAL DIFF NO %
[2016-11-06 04:30] LABS: A/G RATIO 0.6 (0.7-1.9); ALBUMIN 2.7 G/DL (3.5-5.0); CALCIUM, SERUM 8.7 MG/DL (8.5-10.4); CHLORIDE, SERUM 103 MMOL/L (96-112); GLOBULIN 4.3 G/DL (2.5-4.1); SGOT(AST) 156 U/L (5-40); SGPT(ALT) 154 U/L (5-65); SODIUM, SERUM 141 MMOL/L (135-148); TOTAL BILIRUBIN 0.5 MG/DL (0-1.2)
[2016-11-06 04:31] LABS: BUN (BLOOD UREA NITROGEN) 103 MG/DL (6-23); CO2 (CARBON DIOXIDE) 20 MMOL/L (24-34); CREATININE 4.17 MG/DL (0.55-1.02); GFR AFRICAN AMERICAN 12 ML/MIN (>=60); GFR NON AFRICAN AMERICAN 10 ML/MIN (>=60); POTASSIUM, SERUM 3.9 MMOL/L (3.5-5.3)
[2016-11-06 04:32] LABS: ALKALINE PHOSPHATASE 159 U/L (45-117); GLUCOSE, SERUM 221 MG/DL (60-99)
[2016-11-06 05:27] LABS: PROCALCITONIN 3.57 ng/mL (<0.5)
[2016-11-06 05:47] LABS: TROPONIN I 0.08 NG/ML (<0.05)
[2016-11-07 03:38] LABS: ALLENS TEST Pos; BE (BASE EXCESS) -9.6 MEQ/L (0 +/- 2.5); CARBOXYHEMOGLOBIN 0.1 % (0-3); HCO3 (ACTUAL BICARBONATE) 17.4 MEQ/L (23-27); HEMOBLOGIN CONTENT 10.5 G/DL (12-16); INSTRUMENT SERIAL # 8083; METHEMOGLOBIN 0.3 % (0-3); MODE PCV +30; O2 CONTENT 14.7 VOL% (18-24); OPERATOR ID 14661; PCO2 (CO2 TENSION) 42 MMHG (35-45); PO2 (O2 TENSION) 137 MMHG (79-93); SAMPLE Arterial; pH 7.23 (7.37-7.43)
[2016-11-07 04:54] LABS: ALBUMIN 2.5 G/DL (3.5-5.0); CALCIUM, SERUM 9.2 MG/DL (8.5-10.4); CHLORIDE, SERUM 99 MMOL/L (96-112); CO2 (CARBON DIOXIDE) 17 MMOL/L (24-34); POTASSIUM, SERUM 4.2 MMOL/L (3.5-5.3); SODIUM, SERUM 138 MMOL/L (135-148)
[2016-11-07 04:57] LABS: BUN (BLOOD UREA NITROGEN) 137 MG/DL (6-23); CREATININE 5.24 MG/DL (0.55-1.02); GFR AFRICAN AMERICAN 9 ML/MIN (>=60); GFR NON AFRICAN AMERICAN 8 ML/MIN (>=60); GLUCOSE, SERUM 153 MG/DL (60-99)
[2016-11-07 05:17] LABS: PHOSPHORUS, SERUM 10.1 MG/DL (2.5-4.5)
[2016-11-07 05:35] LABS: BASOPHILS 0.4 %; BASOPHILS ABSOLUTE 0.09 10/3/uL (0.0-0.16); EOSINOPHILS 4.3 %; EOSINOPHILS ABSOLUTE 0.87 10/3/uL (0.0-0.53); HEMATOCRIT 26.5 % (36.0-48.0); HEMOGLOBIN 8.9 g/dL (12.0-16.0); LYMPHOCYTES 13.7 %; LYMPHOCYTES ABSOLUTE 2.78 10/3/uL (0.67-4.30); MEAN CORPUS HGB CONC 33.6 g/dL (32.0-36.0); MEAN CORPUSCULAR HEMOGLOB 31.9 pg (26.0-34.0); MEAN PLATELET VOLUME 9.9 fL (9.2-13.0); MONOCYTES 4.3 %; MONOCYTES ABSOLUTE 0.88 10/3/uL (0.21-1.20); NEUTROPHILS 76.3 %; PLATELET COUNT 379 10/3/uL (150-400); RED CELL COUNT 2.79 10/6/uL (4.0-5.6); WHITE BLOOD CELLS 20.3 10/3/uL (4.5-10.5)
[2016-11-07 05:39] LABS: MANUAL DIFF NO %
[2016-11-07 09:47] LABS: ALLENS TEST Pos; BE (BASE EXCESS) -9.3 MEQ/L (0 +/- 2.5); CARBOXYHEMOGLOBIN 0.5 % (0-3); HCO3 (ACTUAL BICARBONATE) 16.9 MEQ/L (23-27); INSTRUMENT SERIAL # 8083; METHEMOGLOBIN 0.4 % (0-3); MODE CMV; O2 CONTENT 13.7 VOL% (18-24); OPERATOR ID 35188; PCO2 (CO2 TENSION) 38 MMHG (35-45); PO2 (O2 TENSION) 103 MMHG (79-93); SAMPLE Arterial; TIDAL VOLUME 450 ML; pH 7.27 (7.37-7.43)
[2016-11-07 10:42] LABS: A/G RATIO 0.7 (0.7-1.9); ALBUMIN 2.6 G/DL (3.5-5.0); CALCIUM, SERUM 8.6 MG/DL (8.5-10.4); CHLORIDE, SERUM 96 MMOL/L (96-112); CO2 (CARBON DIOXIDE) 18 MMOL/L (24-34); CREATININE 5.62 MG/DL (0.55-1.02); GFR AFRICAN AMERICAN 8 ML/MIN (>=60); GFR NON AFRICAN AMERICAN 7 ML/MIN (>=60); GLOBULIN 3.8 G/DL (2.5-4.1); GLUCOSE, SERUM 157 MG/DL (60-99); POTASSIUM, SERUM 4.7 MMOL/L (3.5-5.3); SGOT(AST) 108 U/L (5-40); SGPT(ALT) 143 U/L (5-65); SODIUM, SERUM 137 MMOL/L (135-148); TOTAL BILIRUBIN 0.6 MG/DL (0-1.2); TOTAL PROTEIN 6.4 G/DL (6.0-8.5); ULTRASENSITIVE TSH 0.979 MCIU/ML (0.358-3.740)
[2016-11-07 10:43] LABS: ALKALINE PHOSPHATASE 138 U/L (45-117); BUN (BLOOD UREA NITROGEN) 151 MG/DL (6-23)
[2016-11-07 15:21] LABS: HEMATOCRIT 25.1 % (36.0-48.0); HEMOGLOBIN 8.5 g/dL (12.0-16.0); MEAN CORPUS HGB CONC 33.9 g/dL (32.0-36.0); MEAN CORPUSCULAR HEMOGLOB 31.8 pg (26.0-34.0); MEAN PLATELET VOLUME 9.2 fL (9.2-13.0); PLATELET COUNT 408 10/3/uL (150-400); RBC DISTRIBUTION WIDTH 15.8 % (12.0-16.0); RED CELL COUNT 2.67 10/6/uL (4.0-5.6); WHITE BLOOD CELLS 24.5 10/3/uL (4.5-10.5)
[2016-11-07 15:22] LABS: MANUAL DIFF YES %
[2016-11-07 15:41] LABS: CALCIUM, SERUM 7.9 MG/DL (8.5-10.4); CHLORIDE, SERUM 96 MMOL/L (96-112); CO2 (CARBON DIOXIDE) 21 MMOL/L (24-34); GLUCOSE, SERUM 165 MG/DL (60-99); POTASSIUM, SERUM 4.4 MMOL/L (3.5-5.3); SODIUM, SERUM 136 MMOL/L (135-148)
[2016-11-07 15:42] LABS: BUN (BLOOD UREA NITROGEN) 135 MG/DL (6-23); CREATININE 4.82 MG/DL (0.55-1.02); GFR AFRICAN AMERICAN 10 ML/MIN (>=60); GFR NON AFRICAN AMERICAN 9 ML/MIN (>=60)
[2016-11-07 15:43] LABS: PHOSPHORUS, SERUM 8.7 MG/DL (2.5-4.5)
[2016-11-07 16:02] LABS: BAND NEUTROPHILS 1 %; EOSINOPHILS 1 %; EOSINOPHILS ABSOLUTE (CALC) 0.25 10/3/uL (0.0-0.53); LYMPHOCYTES 4 %; LYMPHOCYTES ABSOLUTE (CALC) 0.98 10/3/uL (0.67-4.30); MONOCYTES 5 %; MONOCYTES ABSOLUTE (CALC) 1.23 10/3/uL (0.21-1.20); NEUTROPHILS ABSOLUTE (CALC) 22.05 10/3/uL (2.02-8.40); PLATELET ESTIMATE SLT INC (ADEQUATE); RBC MORPHOLOGY NORM (NORMAL); SEGMENTED NEUTROPHIL (0) 89 %; TOTAL NUCLEATED CELLS 100
[2016-11-07 22:16] LABS: BASOPHILS 0.1 %; BASOPHILS ABSOLUTE 0.03 10/3/uL (0.0-0.16); EOSINOPHILS 0.2 %; EOSINOPHILS ABSOLUTE 0.05 10/3/uL (0.0-0.53); HEMATOCRIT 24.9 % (36.0-48.0); HEMOGLOBIN 8.3 g/dL (12.0-16.0); IMMATURE GRANULOCYTES 0.5 %; IMMATURE GRANULOCYTES ABSOLUTE 0.12 10/3/uL (0.0-0.11); LYMPHOCYTES 2.8 %; LYMPHOCYTES ABSOLUTE 0.64 10/3/uL (0.67-4.30); MEAN CORPUS HGB CONC 33.3 g/dL (32.0-36.0); MEAN CORPUSCULAR HEMOGLOB 31.6 pg (26.0-34.0); MEAN CORPUSCULAR VOLUME 94.7 fL (80-100); MEAN PLATELET VOLUME 9.2 fL (9.2-13.0); MONOCYTES 1.7 %; MONOCYTES ABSOLUTE 0.38 10/3/uL (0.21-1.20); NEUTROPHILS 94.7 %; NEUTROPHILS ABSOLUTE 21.56 10/3/uL (2.02-8.40); PLATELET COUNT 367 10/3/uL (150-400); RBC DISTRIBUTION WIDTH 15.9 % (12.0-16.0); RED CELL COUNT 2.63 10/6/uL (4.0-5.6); WHITE BLOOD CELLS 22.8 10/3/uL (4.5-10.5)
[2016-11-07 22:22] LABS: MANUAL DIFF NO %
[2016-11-07 22:32] LABS: BUN (BLOOD UREA NITROGEN) 91 MG/DL (6-23); CALCIUM, SERUM 7.4 MG/DL (8.5-10.4); CHLORIDE, SERUM 98 MMOL/L (96-112); CO2 (CARBON DIOXIDE) 26 MMOL/L (24-34); CREATININE 3.19 MG/DL (0.55-1.02); GFR AFRICAN AMERICAN 17 ML/MIN (>=60); GFR NON AFRICAN AMERICAN 14 ML/MIN (>=60); GLUCOSE, SERUM 194 MG/DL (60-99); POTASSIUM, SERUM 4.1 MMOL/L (3.5-5.3); SODIUM, SERUM 137 MMOL/L (135-148)
[2016-11-08 04:12] LABS: ALLENS TEST Pos; BE (BASE EXCESS) 1.6 MEQ/L (0 +/- 2.5); CARBOXYHEMOGLOBIN 0.3 % (0-3); HCO3 (ACTUAL BICARBONATE) 26.5 MEQ/L (23-27); HEMOBLOGIN CONTENT 8.2 G/DL (12-16); INSTRUMENT SERIAL # 11843; METHEMOGLOBIN 0.5 % (0-3); MODE CMV; O2 CONTENT 11.3 VOL% (18-24); OPERATOR ID 13415; PCO2 (CO2 TENSION) 44 MMHG (35-45); PO2 (O2 TENSION) 103 MMHG (79-93); SAMPLE Arterial; TIDAL VOLUME 450 ML
[2016-11-08 05:43] LABS: A/G RATIO 0.6 (0.7-1.9); ALBUMIN 2.4 G/DL (3.5-5.0); ALKALINE PHOSPHATASE 130 U/L (45-117); CALCIUM, SERUM 7.6 MG/DL (8.5-10.4); CHLORIDE, SERUM 97 MMOL/L (96-112); CO2 (CARBON DIOXIDE) 29 MMOL/L (24-34); GLOBULIN 4.1 G/DL (2.5-4.1); GLUCOSE, SERUM 192 MG/DL (60-99); POTASSIUM, SERUM 4.1 MMOL/L (3.5-5.3); SGOT(AST) 68 U/L (5-40); SGPT(ALT) 114 U/L (5-65); SODIUM, SERUM 137 MMOL/L (135-148); TOTAL BILIRUBIN 0.5 MG/DL (0-1.2); TOTAL PROTEIN 6.5 G/DL (6.0-8.5)
[2016-11-08 05:45] LABS: BUN (BLOOD UREA NITROGEN) 68 MG/DL (6-23); CREATININE 2.35 MG/DL (0.55-1.02); GFR AFRICAN AMERICAN 24 ML/MIN (>=60); GFR NON AFRICAN AMERICAN 21 ML/MIN (>=60); PHOSPHORUS, SERUM 4.6 MG/DL (2.5-4.5)
[2016-11-08 06:12] LABS: BASOPHILS 0.1 %; BASOPHILS ABSOLUTE 0.02 10/3/uL (0.0-0.16); EOSINOPHILS 0 %; HEMATOCRIT 22.8 % (36.0-48.0); IMMATURE GRANULOCYTES 0.3 %; IMMATURE GRANULOCYTES ABSOLUTE 0.06 10/3/uL (0.0-0.11); LYMPHOCYTES ABSOLUTE 0.81 10/3/uL (0.67-4.30); MEAN CORPUSCULAR HEMOGLOB 32.5 pg (26.0-34.0); MEAN CORPUSCULAR VOLUME 92.7 fL (80-100); MEAN PLATELET VOLUME 9.3 fL (9.2-13.0); MONOCYTES 1.6 %; MONOCYTES ABSOLUTE 0.33 10/3/uL (0.21-1.20); NEUTROPHILS ABSOLUTE 18.94 10/3/uL (2.02-8.40); PLATELET COUNT 388 10/3/uL (150-400); RBC DISTRIBUTION WIDTH 15.9 % (12.0-16.0); RED CELL COUNT 2.46 10/6/uL (4.0-5.6); WHITE BLOOD CELLS 20.2 10/3/uL (4.5-10.5)
[2016-11-08 06:13] LABS: MANUAL DIFF NO %; MEAN CORPUS HGB CONC 35.1 g/dL (32.0-36.0)
[2016-11-08 11:01] LABS: BASOPHILS 0.1 %; BASOPHILS ABSOLUTE 0.01 10/3/uL (0.0-0.16); EOSINOPHILS 0.7 %; HEMATOCRIT 21.8 % (36.0-48.0); HEMOGLOBIN 7.5 g/dL (12.0-16.0); IMMATURE GRANULOCYTES 0.6 %; IMMATURE GRANULOCYTES ABSOLUTE 0.08 10/3/uL (0.0-0.11); LYMPHOCYTES 7.4 %; LYMPHOCYTES ABSOLUTE 1.06 10/3/uL (0.67-4.30); MEAN CORPUS HGB CONC 34.4 g/dL (32.0-36.0); MEAN CORPUSCULAR HEMOGLOB 32.5 pg (26.0-34.0); MEAN CORPUSCULAR VOLUME 94.4 fL (80-100); MEAN PLATELET VOLUME 9.1 fL (9.2-13.0); MONOCYTES 4.6 %; MONOCYTES ABSOLUTE 0.66 10/3/uL (0.21-1.20); NEUTROPHILS 86.6 %; NEUTROPHILS ABSOLUTE 12.34 10/3/uL (2.02-8.40); PLATELET COUNT 320 10/3/uL (150-400); RBC DISTRIBUTION WIDTH 15.7 % (12.0-16.0); RED CELL COUNT 2.31 10/6/uL (4.0-5.6); WHITE BLOOD CELLS 14.3 10/3/uL (4.5-10.5)
[2016-11-08 11:03] LABS: MANUAL DIFF NO %
[2016-11-08 11:13] LABS: BUN (BLOOD UREA NITROGEN) 54 MG/DL (6-23); CALCIUM, SERUM 7.5 MG/DL (8.5-10.4); CHLORIDE, SERUM 97 MMOL/L (96-112); CO2 (CARBON DIOXIDE) 29 MMOL/L (24-34); CREATININE 1.77 MG/DL (0.55-1.02); GFR AFRICAN AMERICAN 34 ML/MIN (>=60); GFR NON AFRICAN AMERICAN 29 ML/MIN (>=60); GLUCOSE, SERUM 103 MG/DL (60-99); POTASSIUM, SERUM 3.6 MMOL/L (3.5-5.3); SODIUM, SERUM 138 MMOL/L (135-148)
[2016-11-08 17:11] LABS: BASOPHILS 0.1 %; BASOPHILS ABSOLUTE 0.01 10/3/uL (0.0-0.16); EOSINOPHILS 0.5 %; EOSINOPHILS ABSOLUTE 0.06 10/3/uL (0.0-0.53); HEMATOCRIT 21.4 % (36.0-48.0); HEMOGLOBIN 7.3 g/dL (12.0-16.0); IMMATURE GRANULOCYTES 0.5 %; IMMATURE GRANULOCYTES ABSOLUTE 0.06 10/3/uL (0.0-0.11); LYMPHOCYTES 5.2 %; LYMPHOCYTES ABSOLUTE 0.67 10/3/uL (0.67-4.30); MEAN CORPUS HGB CONC 34.1 g/dL (32.0-36.0); MEAN CORPUSCULAR HEMOGLOB 32.2 pg (26.0-34.0); MEAN CORPUSCULAR VOLUME 94.3 fL (80-100); MEAN PLATELET VOLUME 9.4 fL (9.2-13.0); MONOCYTES 3.7 %; MONOCYTES ABSOLUTE 0.48 10/3/uL (0.21-1.20); NEUTROPHILS ABSOLUTE 11.61 10/3/uL (2.02-8.40); PLATELET COUNT 307 10/3/uL (150-400); RED CELL COUNT 2.27 10/6/uL (4.0-5.6); WHITE BLOOD CELLS 12.9 10/3/uL (4.5-10.5)
[2016-11-08 17:12] LABS: MANUAL DIFF NO %
[2016-11-08 17:24] LABS: BUN (BLOOD UREA NITROGEN) 44 MG/DL (6-23); CALCIUM, SERUM 8.2 MG/DL (8.5-10.4); CHLORIDE, SERUM 96 MMOL/L (96-112); CO2 (CARBON DIOXIDE) 30 MMOL/L (24-34); CREATININE 1.51 MG/DL (0.55-1.02); GFR AFRICAN AMERICAN 41 ML/MIN (>=60); GFR NON AFRICAN AMERICAN 36 ML/MIN (>=60); GLUCOSE, SERUM 142 MG/DL (60-99); PHOSPHORUS, SERUM 3.6 MG/DL (2.5-4.5); POTASSIUM, SERUM 3.6 MMOL/L (3.5-5.3); SODIUM, SERUM 138 MMOL/L (135-148)
[2016-11-08 21:58] LABS: BASOPHILS 0.1 %; BASOPHILS ABSOLUTE 0.01 10/3/uL (0.0-0.16); EOSINOPHILS 0 %; HEMOGLOBIN 6.7 g/dL (12.0-16.0); IMMATURE GRANULOCYTES 0.3 %; IMMATURE GRANULOCYTES ABSOLUTE 0.04 10/3/uL (0.0-0.11); LYMPHOCYTES 4.3 %; LYMPHOCYTES ABSOLUTE 0.55 10/3/uL (0.67-4.30); MEAN CORPUS HGB CONC 34.9 g/dL (32.0-36.0); MEAN CORPUSCULAR HEMOGLOB 32.8 pg (26.0-34.0); MEAN CORPUSCULAR VOLUME 94.1 fL (80-100); MEAN PLATELET VOLUME 8.8 fL (9.2-13.0); MONOCYTES 4.3 %; MONOCYTES ABSOLUTE 0.54 10/3/uL (0.21-1.20); NEUTROPHILS ABSOLUTE 11.53 10/3/uL (2.02-8.40); PLATELET COUNT 265 10/3/uL (150-400); RBC DISTRIBUTION WIDTH 15.8 % (12.0-16.0); RED CELL COUNT 2.04 10/6/uL (4.0-5.6); WHITE BLOOD CELLS 12.7 10/3/uL (4.5-10.5)
[2016-11-08 21:59] LABS: HEMATOCRIT 19.2 % (36.0-48.0)
[2016-11-08 22:00] LABS: MANUAL DIFF NO %
[2016-11-08 22:09] LABS: CALCIUM, SERUM 8.2 MG/DL (8.5-10.4); CHLORIDE, SERUM 96 MMOL/L (96-112); CO2 (CARBON DIOXIDE) 31 MMOL/L (24-34); CREATININE 1.32 MG/DL (0.55-1.02); GFR AFRICAN AMERICAN 49 ML/MIN (>=60); GFR NON AFRICAN AMERICAN 42 ML/MIN (>=60); GLUCOSE, SERUM 170 MG/DL (60-99); POTASSIUM, SERUM 3.9 MMOL/L (3.5-5.3); SODIUM, SERUM 138 MMOL/L (135-148)
[2016-11-08 22:10] LABS: BUN (BLOOD UREA NITROGEN) 38 MG/DL (6-23)
[2016-11-09 04:22] LABS: ALLENS TEST Pos; BE (BASE EXCESS) 3.8 MEQ/L (0 +/- 2.5); CARBOXYHEMOGLOBIN 2.1 % (0-3); HCO3 (ACTUAL BICARBONATE) 29.2 MEQ/L (23-27); HEMOBLOGIN CONTENT 7.4 G/DL (12-16); INSTRUMENT SERIAL # 8087; METHEMOGLOBIN 0.6 % (0-3); O2 CONTENT 9.4 VOL% (18-24); OPERATOR ID 334499; PCO2 (CO2 TENSION) 49 MMHG (35-45); PO2 (O2 TENSION) 66 MMHG (79-93); SAMPLE Arterial; TIDAL VOLUME 450 ML; pH 7.39 (7.37-7.43)
[2016-11-09 04:33] LABS: BASOPHILS 0.1 %; BASOPHILS ABSOLUTE 0.01 10/3/uL (0.0-0.16); EOSINOPHILS 0.1 %; EOSINOPHILS ABSOLUTE 0.01 10/3/uL (0.0-0.53); IMMATURE GRANULOCYTES 0.4 %; IMMATURE GRANULOCYTES ABSOLUTE 0.06 10/3/uL (0.0-0.11); LYMPHOCYTES 6.1 %; LYMPHOCYTES ABSOLUTE 0.97 10/3/uL (0.67-4.30); MEAN CORPUS HGB CONC 33.5 g/dL (32.0-36.0); MEAN CORPUSCULAR HEMOGLOB 31.4 pg (26.0-34.0); MEAN CORPUSCULAR VOLUME 93.7 fL (80-100); MEAN PLATELET VOLUME 9.2 fL (9.2-13.0); MONOCYTES 3.2 %; MONOCYTES ABSOLUTE 0.51 10/3/uL (0.21-1.20); NEUTROPHILS 90.1 %; PLATELET COUNT 299 10/3/uL (150-400); RED CELL COUNT 2.23 10/6/uL (4.0-5.6)
[2016-11-09 04:34] LABS: HEMATOCRIT 20.9 % (36.0-48.0); MANUAL DIFF NO %
[2016-11-09 04:37] LABS: BUN (BLOOD UREA NITROGEN) 38 MG/DL (6-23); CHLORIDE, SERUM 98 MMOL/L (96-112); CO2 (CARBON DIOXIDE) 29 MMOL/L (24-34); CREATININE 1.38 MG/DL (0.55-1.02); GFR AFRICAN AMERICAN 46 ML/MIN (>=60); GFR NON AFRICAN AMERICAN 40 ML/MIN (>=60); GLUCOSE, SERUM 162 MG/DL (60-99); PHOSPHORUS, SERUM 3.8 MG/DL (2.5-4.5); POTASSIUM, SERUM 4.2 MMOL/L (3.5-5.3); SODIUM, SERUM 138 MMOL/L (135-148)
[2016-11-09 04:39] LABS: CALCIUM, SERUM 9.2 MG/DL (8.5-10.4)
[2016-11-09 06:54] LABS: BE (BASE EXCESS) 1.7 MEQ/L (0 +/- 2.5); CARBOXYHEMOGLOBIN 0.8 % (0-3); HCO3 (ACTUAL BICARBONATE) 28.2 MEQ/L (23-27); INSTRUMENT SERIAL # 8083; METHEMOGLOBIN 0.1 % (0-3); PCO2 (CO2 TENSION) 55 MMHG (35-45); PO2 (O2 TENSION) 97 MMHG (79-93); pH 7.33 (7.37-7.43)
[2016-11-09 06:55] LABS: ALLENS TEST Pos; HEMOBLOGIN CONTENT 8.4 G/DL (12-16); O2 CONTENT 11.5 VOL% (18-24); OPERATOR ID 33214; SAMPLE Arterial; TIDAL VOLUME 450 ML
[2016-11-09 10:21] LABS: BASOPHILS 0.1 %; BASOPHILS ABSOLUTE 0.02 10/3/uL (0.0-0.16); EOSINOPHILS 0.1 %; EOSINOPHILS ABSOLUTE 0.01 10/3/uL (0.0-0.53); HEMATOCRIT 22.7 % (36.0-48.0); HEMOGLOBIN 7.6 g/dL (12.0-16.0); IMMATURE GRANULOCYTES 1.1 %; IMMATURE GRANULOCYTES ABSOLUTE 0.19 10/3/uL (0.0-0.11); LYMPHOCYTES 3.4 %; MEAN CORPUS HGB CONC 33.5 g/dL (32.0-36.0); MEAN CORPUSCULAR HEMOGLOB 31.1 pg (26.0-34.0); MEAN PLATELET VOLUME 9.1 fL (9.2-13.0); MONOCYTES 4.5 %; NEUTROPHILS 90.8 %; NEUTROPHILS ABSOLUTE 16.23 10/3/uL (2.02-8.40); PLATELET COUNT 269 10/3/uL (150-400); RBC DISTRIBUTION WIDTH 16.8 % (12.0-16.0); RED CELL COUNT 2.44 10/6/uL (4.0-5.6); WHITE BLOOD CELLS 17.9 10/3/uL (4.5-10.5)
[2016-11-09 10:25] LABS: MANUAL DIFF NO %
[2016-11-09 10:32] LABS: BUN (BLOOD UREA NITROGEN) 29 MG/DL (6-23); CALCIUM, SERUM 8.6 MG/DL (8.5-10.4); CHLORIDE, SERUM 95 MMOL/L (96-112); CO2 (CARBON DIOXIDE) 32 MMOL/L (24-34); CREATININE 1.02 MG/DL (0.55-1.02); GFR AFRICAN AMERICAN 66 ML/MIN (>=60); GFR NON AFRICAN AMERICAN 57 ML/MIN (>=60); GLUCOSE, SERUM 137 MG/DL (60-99); SODIUM, SERUM 138 MMOL/L (135-148)
[2016-11-09 10:56] LABS: PROCALCITONIN 0.91 ng/mL (<0.5)
[2016-11-09 16:54] LABS: BASOPHILS 0.1 %; BASOPHILS ABSOLUTE 0.02 10/3/uL (0.0-0.16); EOSINOPHILS 0.3 %; EOSINOPHILS ABSOLUTE 0.07 10/3/uL (0.0-0.53); HEMATOCRIT 22.9 % (36.0-48.0); HEMOGLOBIN 7.8 g/dL (12.0-16.0); IMMATURE GRANULOCYTES 1.1 %; IMMATURE GRANULOCYTES ABSOLUTE 0.23 10/3/uL (0.0-0.11); LYMPHOCYTES 4.6 %; LYMPHOCYTES ABSOLUTE 0.98 10/3/uL (0.67-4.30); MEAN CORPUS HGB CONC 34.1 g/dL (32.0-36.0); MEAN CORPUSCULAR HEMOGLOB 31.7 pg (26.0-34.0); MEAN CORPUSCULAR VOLUME 93.1 fL (80-100); MEAN PLATELET VOLUME 9.2 fL (9.2-13.0); MONOCYTES 4.8 %; MONOCYTES ABSOLUTE 1.04 10/3/uL (0.21-1.20); NEUTROPHILS 89.1 %; NEUTROPHILS ABSOLUTE 19.14 10/3/uL (2.02-8.40); PLATELET COUNT 299 10/3/uL (150-400); RBC DISTRIBUTION WIDTH 17.1 % (12.0-16.0); RED CELL COUNT 2.46 10/6/uL (4.0-5.6); WHITE BLOOD CELLS 21.5 10/3/uL (4.5-10.5)
[2016-11-09 16:55] LABS: MANUAL DIFF NO %
[2016-11-09 17:10] LABS: BUN (BLOOD UREA NITROGEN) 30 MG/DL (6-23); CALCIUM, SERUM 8.6 MG/DL (8.5-10.4); CHLORIDE, SERUM 98 MMOL/L (96-112); CO2 (CARBON DIOXIDE) 31 MMOL/L (24-34); CREATININE 0.96 MG/DL (0.55-1.02); GFR AFRICAN AMERICAN 71 ML/MIN (>=60); GFR NON AFRICAN AMERICAN 62 ML/MIN (>=60); GLUCOSE, SERUM 147 MG/DL (60-99); POTASSIUM, SERUM 3.6 MMOL/L (3.5-5.3); SODIUM, SERUM 138 MMOL/L (135-148)
[2016-11-09 17:12] LABS: PHOSPHORUS, SERUM 2.6 MG/DL (2.5-4.5)
[2016-11-09 22:57] LABS: BASOPHILS 0.1 %; BASOPHILS ABSOLUTE 0.02 10/3/uL (0.0-0.16); EOSINOPHILS 0.1 %; EOSINOPHILS ABSOLUTE 0.03 10/3/uL (0.0-0.53); HEMATOCRIT 23.6 % (36.0-48.0); IMMATURE GRANULOCYTES ABSOLUTE 0.22 10/3/uL (0.0-0.11); LYMPHOCYTES 3.5 %; LYMPHOCYTES ABSOLUTE 0.74 10/3/uL (0.67-4.30); MANUAL DIFF NO %; MEAN CORPUS HGB CONC 33.9 g/dL (32.0-36.0); MEAN CORPUSCULAR VOLUME 94.4 fL (80-100); MONOCYTES ABSOLUTE 1.07 10/3/uL (0.21-1.20); NEUTROPHILS 90.3 %; NEUTROPHILS ABSOLUTE 19.19 10/3/uL (2.02-8.40); PLATELET COUNT 278 10/3/uL (150-400); RBC DISTRIBUTION WIDTH 17.3 % (12.0-16.0); WHITE BLOOD CELLS 21.3 10/3/uL (4.5-10.5)
[2016-11-09 23:04] LABS: CALCIUM, SERUM 8.4 MG/DL (8.5-10.4); CHLORIDE, SERUM 96 MMOL/L (96-112); CO2 (CARBON DIOXIDE) 32 MMOL/L (24-34); GFR AFRICAN AMERICAN 77 ML/MIN (>=60); GFR NON AFRICAN AMERICAN 67 ML/MIN (>=60); GLUCOSE, SERUM 140 MG/DL (60-99); POTASSIUM, SERUM 3.9 MMOL/L (3.5-5.3); SODIUM, SERUM 138 MMOL/L (135-148)
[2016-11-09 23:05] LABS: BUN (BLOOD UREA NITROGEN) 25 MG/DL (6-23)
[2016-11-10 04:32] LABS: ALLENS TEST Pos; BE (BASE EXCESS) 0.8 MEQ/L (0 +/- 2.5); CARBOXYHEMOGLOBIN 0.9 % (0-3); HCO3 (ACTUAL BICARBONATE) 27.4 MEQ/L (23-27); HEMOBLOGIN CONTENT 8.8 G/DL (12-16); INSTRUMENT SERIAL # 8083; METHEMOGLOBIN 0.2 % (0-3); MODE CMV; O2 CONTENT 11.8 VOL% (18-24); OPERATOR ID 23712; PCO2 (CO2 TENSION) 55 MMHG (35-45); PO2 (O2 TENSION) 82 MMHG (79-93); SAMPLE Arterial; TIDAL VOLUME 450 ML; pH 7.32 (7.37-7.43)
[2016-11-10 05:30] LABS: BASOPHILS 0.1 %; BASOPHILS ABSOLUTE 0.02 10/3/uL (0.0-0.16); EOSINOPHILS 0.2 %; EOSINOPHILS ABSOLUTE 0.05 10/3/uL (0.0-0.53); HEMATOCRIT 23.2 % (36.0-48.0); HEMOGLOBIN 7.7 g/dL (12.0-16.0); IMMATURE GRANULOCYTES 0.7 %; IMMATURE GRANULOCYTES ABSOLUTE 0.14 10/3/uL (0.0-0.11); LYMPHOCYTES 5.2 %; LYMPHOCYTES ABSOLUTE 1.11 10/3/uL (0.67-4.30); MEAN CORPUS HGB CONC 33.2 g/dL (32.0-36.0); MEAN CORPUSCULAR HEMOGLOB 30.9 pg (26.0-34.0); MEAN CORPUSCULAR VOLUME 93.2 fL (80-100); MEAN PLATELET VOLUME 9.2 fL (9.2-13.0); MONOCYTES 5.2 %; MONOCYTES ABSOLUTE 1.11 10/3/uL (0.21-1.20); NEUTROPHILS 88.6 %; NEUTROPHILS ABSOLUTE 19.07 10/3/uL (2.02-8.40); PLATELET COUNT 270 10/3/uL (150-400); RBC DISTRIBUTION WIDTH 17.4 % (12.0-16.0); RED CELL COUNT 2.49 10/6/uL (4.0-5.6); WHITE BLOOD CELLS 21.5 10/3/uL (4.5-10.5)
[2016-11-10 05:33] LABS: MANUAL DIFF NO %
[2016-11-10 05:58] LABS: A/G RATIO 0.9 (0.7-1.9); ALKALINE PHOSPHATASE 141 U/L (45-117); BUN (BLOOD UREA NITROGEN) 24 MG/DL (6-23); CALCIUM, SERUM 8.6 MG/DL (8.5-10.4); CHLORIDE, SERUM 97 MMOL/L (96-112); CO2 (CARBON DIOXIDE) 29 MMOL/L (24-34); CREATININE 0.87 MG/DL (0.55-1.02); GFR AFRICAN AMERICAN 80 ML/MIN (>=60); GFR NON AFRICAN AMERICAN 69 ML/MIN (>=60); GLOBULIN 3.5 G/DL (2.5-4.1); GLUCOSE, SERUM 130 MG/DL (60-99); INTERNATIONAL NORMAL RATI 1.1 UNITS (-); PARTIAL THROMBO TIME 28.6 SEC (22.5-37.2); PHOSPHORUS, SERUM 3.2 MG/DL (2.5-4.5); SGOT(AST) 70 U/L (5-40); SGPT(ALT) 79 U/L (5-65); SODIUM, SERUM 138 MMOL/L (135-148); TOTAL BILIRUBIN 0.6 MG/DL (0-1.2); TOTAL PROTEIN 6.6 G/DL (6.0-8.5)
[2016-11-10 06:00] LABS: ALBUMIN 3.1 G/DL (3.5-5.0)
[2016-11-10 07:02] LABS: PREALBUMIN 20.5 MG/DL (17.0-43.0)
[2016-11-10 10:37] LABS: BASOPHILS 0.2 %; BASOPHILS ABSOLUTE 0.04 10/3/uL (0.0-0.16); EOSINOPHILS 0.5 %; EOSINOPHILS ABSOLUTE 0.11 10/3/uL (0.0-0.53); HEMATOCRIT 22.6 % (36.0-48.0); HEMOGLOBIN 7.5 g/dL (12.0-16.0); IMMATURE GRANULOCYTES 1.2 %; IMMATURE GRANULOCYTES ABSOLUTE 0.27 10/3/uL (0.0-0.11); LYMPHOCYTES 4.4 %; LYMPHOCYTES ABSOLUTE 0.98 10/3/uL (0.67-4.30); MEAN CORPUS HGB CONC 33.2 g/dL (32.0-36.0); MEAN CORPUSCULAR VOLUME 93.4 fL (80-100); MEAN PLATELET VOLUME 8.9 fL (9.2-13.0); MONOCYTES 5.6 %; MONOCYTES ABSOLUTE 1.25 10/3/uL (0.21-1.20); NEUTROPHILS 88.1 %; NEUTROPHILS ABSOLUTE 19.78 10/3/uL (2.02-8.40); PLATELET COUNT 280 10/3/uL (150-400); RED CELL COUNT 2.42 10/6/uL (4.0-5.6); WHITE BLOOD CELLS 22.4 10/3/uL (4.5-10.5)
[2016-11-10 10:38] LABS: MANUAL DIFF NO %
[2016-11-10 10:50] LABS: BUN (BLOOD UREA NITROGEN) 24 MG/DL (6-23); CHLORIDE, SERUM 96 MMOL/L (96-112); CO2 (CARBON DIOXIDE) 30 MMOL/L (24-34); CREATININE 0.87 MG/DL (0.55-1.02); GFR AFRICAN AMERICAN 80 ML/MIN (>=60); GFR NON AFRICAN AMERICAN 69 ML/MIN (>=60); GLUCOSE, SERUM 145 MG/DL (60-99); POTASSIUM, SERUM 3.8 MMOL/L (3.5-5.3); SODIUM, SERUM 137 MMOL/L (135-148)
[2016-11-10 16:31] LABS: BASOPHILS 0.2 %; BASOPHILS ABSOLUTE 0.05 10/3/uL (0.0-0.16); EOSINOPHILS 1.4 %; EOSINOPHILS ABSOLUTE 0.29 10/3/uL (0.0-0.53); HEMATOCRIT 22.2 % (36.0-48.0); HEMOGLOBIN 7.4 g/dL (12.0-16.0); IMMATURE GRANULOCYTES 1.8 %; IMMATURE GRANULOCYTES ABSOLUTE 0.39 10/3/uL (0.0-0.11); LYMPHOCYTES ABSOLUTE 2.36 10/3/uL (0.67-4.30); MANUAL DIFF NO %; MEAN CORPUS HGB CONC 33.3 g/dL (32.0-36.0); MEAN CORPUSCULAR HEMOGLOB 31.2 pg (26.0-34.0); MEAN CORPUSCULAR VOLUME 93.7 fL (80-100); MEAN PLATELET VOLUME 9.1 fL (9.2-13.0); MONOCYTES 4.9 %; MONOCYTES ABSOLUTE 1.05 10/3/uL (0.21-1.20); NEUTROPHILS 80.7 %; NEUTROPHILS ABSOLUTE 17.24 10/3/uL (2.02-8.40); PLATELET COUNT 285 10/3/uL (150-400); RBC DISTRIBUTION WIDTH 17.1 % (12.0-16.0); RED CELL COUNT 2.37 10/6/uL (4.0-5.6); WHITE BLOOD CELLS 21.4 10/3/uL (4.5-10.5)
[2016-11-10 16:51] LABS: BUN (BLOOD UREA NITROGEN) 25 MG/DL (6-23); CALCIUM, SERUM 8.5 MG/DL (8.5-10.4); CHLORIDE, SERUM 98 MMOL/L (96-112); CO2 (CARBON DIOXIDE) 30 MMOL/L (24-34); CREATININE 0.98 MG/DL (0.55-1.02); GFR AFRICAN AMERICAN 70 ML/MIN (>=60); GFR NON AFRICAN AMERICAN 60 ML/MIN (>=60); GLUCOSE, SERUM 132 MG/DL (60-99); POTASSIUM, SERUM 3.6 MMOL/L (3.5-5.3); SODIUM, SERUM 139 MMOL/L (135-148)
[2016-11-10 16:55] LABS: PHOSPHORUS, SERUM 1.7 MG/DL (2.5-4.5)
[2016-11-10 23:47] LABS: MEAN CORPUS HGB CONC 32.8 g/dL (32.0-36.0); MEAN CORPUSCULAR HEMOGLOB 30.9 pg (26.0-34.0); MEAN PLATELET VOLUME 8.9 fL (9.2-13.0); NUCLEATED RED BLOOD CELLS 0.2 /100WBC (0-0); PLATELET COUNT 252 10/3/uL (150-400); RBC DISTRIBUTION WIDTH 17.4 % (12.0-16.0); RED CELL COUNT 2.17 10/6/uL (4.0-5.6); WHITE BLOOD CELLS 23.8 10/3/uL (4.5-10.5)
[2016-11-10 23:48] LABS: HEMATOCRIT 20.4 % (36.0-48.0); HEMOGLOBIN 6.7 g/dL (12.0-16.0)
[2016-11-10 23:49] LABS: MANUAL DIFF YES %
[2016-11-10 23:53] LABS: BUN (BLOOD UREA NITROGEN) 22 MG/DL (6-23); CALCIUM, SERUM 8.1 MG/DL (8.5-10.4); CHLORIDE, SERUM 96 MMOL/L (96-112); CO2 (CARBON DIOXIDE) 30 MMOL/L (24-34); CREATININE 0.94 MG/DL (0.55-1.02); GFR AFRICAN AMERICAN 73 ML/MIN (>=60); GFR NON AFRICAN AMERICAN 63 ML/MIN (>=60); SODIUM, SERUM 137 MMOL/L (135-148)
[2016-11-10 23:55] LABS: GLUCOSE, SERUM 176 MG/DL (60-99)
[2016-11-11 00:06] LABS: ANISOCYTOSIS 1+ (5-10/OIF) (0-5/OIF); IMMATURE GRANS ABSOLUTE (CALC) 0.95 10/3/uL (0.0-0.11); LYMPHOCYTES 9 %; LYMPHOCYTES ABSOLUTE (CALC) 2.14 10/3/uL (0.67-4.30); METAMYELOCYTES 3 %; MONOCYTES 2 %; MONOCYTES ABSOLUTE (CALC) 0.48 10/3/uL (0.21-1.20); MYELOCYTES 1 %; NEUTROPHILS ABSOLUTE (CALC) 20.23 10/3/uL (2.02-8.40); PLATELET ESTIMATE ADQ (ADEQUATE); SEGMENTED NEUTROPHIL (0) 85 %; TOTAL NUCLEATED CELLS 100
[2016-11-11 03:34] LABS: ALLENS TEST Pos; BE (BASE EXCESS) 1.6 MEQ/L (0 +/- 2.5); CARBOXYHEMOGLOBIN 1.4 % (0-3); HCO3 (ACTUAL BICARBONATE) 28.5 MEQ/L (23-27); HEMOBLOGIN CONTENT 6.6 G/DL (12-16); INSTRUMENT SERIAL # 8083; METHEMOGLOBIN 0.4 % (0-3); MODE CMV; O2 CONTENT 8.9 VOL% (18-24); OPERATOR ID 17370; PCO2 (CO2 TENSION) 61 MMHG (35-45); PO2 (O2 TENSION) 87 MMHG (79-93); SAMPLE Arterial; TIDAL VOLUME 450 ML; pH 7.29 (7.37-7.43)
[2016-11-11 05:08] LABS: BUN (BLOOD UREA NITROGEN) 20 MG/DL (6-23); CALCIUM, SERUM 8.4 MG/DL (8.5-10.4); CHLORIDE, SERUM 96 MMOL/L (96-112); CO2 (CARBON DIOXIDE) 31 MMOL/L (24-34); CREATININE 0.86 MG/DL (0.55-1.02); GFR AFRICAN AMERICAN 82 ML/MIN (>=60); GFR NON AFRICAN AMERICAN 70 ML/MIN (>=60); GLUCOSE, SERUM 152 MG/DL (60-99); MEAN CORPUS HGB CONC 32.4 g/dL (32.0-36.0); MEAN CORPUSCULAR HEMOGLOB 30.3 pg (26.0-34.0); MEAN CORPUSCULAR VOLUME 93.6 fL (80-100); MEAN PLATELET VOLUME 9.1 fL (9.2-13.0); NUCLEATED RED BLOOD CELLS 0.3 /100WBC (0-0); PHOSPHORUS, SERUM 4.1 MG/DL (2.5-4.5); PLATELET COUNT 246 10/3/uL (150-400); RBC DISTRIBUTION WIDTH 16.9 % (12.0-16.0); SODIUM, SERUM 138 MMOL/L (135-148)
[2016-11-11 05:09] LABS: HEMATOCRIT 24.7 % (36.0-48.0); MANUAL DIFF YES %; RED CELL COUNT 2.64 10/6/uL (4.0-5.6); WHITE BLOOD CELLS 25.5 10/3/uL (4.5-10.5)
[2016-11-11 06:15] LABS: BAND NEUTROPHILS 10 %; EOSINOPHILS 1 %; EOSINOPHILS ABSOLUTE (CALC) 0.26 10/3/uL (0.0-0.53); IMMATURE GRANS ABSOLUTE (CALC) 0.26 10/3/uL (0.0-0.11); LYMPHOCYTES 8 %; LYMPHOCYTES ABSOLUTE (CALC) 2.04 10/3/uL (0.67-4.30); METAMYELOCYTES 1 %; MONOCYTES 3 %; MONOCYTES ABSOLUTE (CALC) 0.77 10/3/uL (0.21-1.20); NEUTROPHILS ABSOLUTE (CALC) 22.19 10/3/uL (2.02-8.40); SEGMENTED NEUTROPHIL (0) 77 %; TOTAL NUCLEATED CELLS 100
[2016-11-11 06:17] LABS: PLATELET ESTIMATE ADQ (ADEQUATE); TOXIC GRANULATION 1+
[2016-11-11 06:18] LABS: POLYCHROMASIA 1+ (2-5/OIF) (0-1/OIF)
[2016-11-11 07:00] LABS: PROCALCITONIN 2.43 ng/mL (<0.5)
[2016-11-11 09:58] LABS: ASCORBIC ACID (UR NOT ORDER) NEG (NEG); BILIRUBIN, URINE NEGATIVE (NEG); KETONE, URINE NEGATIVE (NEG); LEUKOCYTE ESTERASE(NOT OR LARGE (NEG); WBC (NOT ORDERED) (RFLEX) 149 (0-5)
[2016-11-11 10:26] LABS: HEMATOCRIT 24.7 % (36.0-48.0); HEMOGLOBIN 8.1 g/dL (12.0-16.0); MEAN CORPUS HGB CONC 32.8 g/dL (32.0-36.0); MEAN CORPUSCULAR HEMOGLOB 30.8 pg (26.0-34.0); MEAN CORPUSCULAR VOLUME 93.9 fL (80-100); NUCLEATED RED BLOOD CELLS 0.4 /100WBC (0-0); PLATELET COUNT 241 10/3/uL (150-400); RBC DISTRIBUTION WIDTH 17.6 % (12.0-16.0); RED CELL COUNT 2.63 10/6/uL (4.0-5.6)
[2016-11-11 10:28] LABS: MANUAL DIFF YES %; WHITE BLOOD CELLS 28.4 10/3/uL (4.5-10.5)
[2016-11-11 10:33] LABS: BUN (BLOOD UREA NITROGEN) 23 MG/DL (6-23); CHLORIDE, SERUM 97 MMOL/L (96-112); CO2 (CARBON DIOXIDE) 29 MMOL/L (24-34); CREATININE 0.82 MG/DL (0.55-1.02); GFR AFRICAN AMERICAN 86 ML/MIN (>=60); GFR NON AFRICAN AMERICAN 75 ML/MIN (>=60); GLUCOSE, SERUM 140 MG/DL (60-99); POTASSIUM, SERUM 3.8 MMOL/L (3.5-5.3); SODIUM, SERUM 138 MMOL/L (135-148)
[2016-11-11 10:45] LABS: ANISOCYTOSIS 1+ (5-10/OIF) (0-5/OIF); BAND NEUTROPHILS 2 %; LYMPHOCYTES 8 %; LYMPHOCYTES ABSOLUTE (CALC) 2.27 10/3/uL (0.67-4.30); MONOCYTES 3 %; MONOCYTES ABSOLUTE (CALC) 0.85 10/3/uL (0.21-1.20); NEUTROPHILS ABSOLUTE (CALC) 25.28 10/3/uL (2.02-8.40); PLATELET ESTIMATE ADQ (ADEQUATE); SEGMENTED NEUTROPHIL (0) 87 %; TOTAL NUCLEATED CELLS 100
[2016-11-11 14:23] LABS: INTERNATIONAL NORMAL RATI 1.1 UNITS (-); PARTIAL THROMBO TIME 30.4 SEC (22.5-37.2); PROTIME (NOT ORD) 14.4 SEC (12.0-14.5)
[2016-11-11 16:47] LABS: HEMATOCRIT 22.6 % (36.0-48.0); HEMOGLOBIN 7.3 g/dL (12.0-16.0); MANUAL DIFF YES %; MEAN CORPUS HGB CONC 32.3 g/dL (32.0-36.0); MEAN CORPUSCULAR HEMOGLOB 30.3 pg (26.0-34.0); MEAN CORPUSCULAR VOLUME 93.8 fL (80-100); MEAN PLATELET VOLUME 9.4 fL (9.2-13.0); NUCLEATED RED BLOOD CELLS 0.7 /100WBC (0-0); PLATELET COUNT 239 10/3/uL (150-400); RBC DISTRIBUTION WIDTH 17.9 % (12.0-16.0); RED CELL COUNT 2.41 10/6/uL (4.0-5.6)
[2016-11-11 16:59] LABS: BUN (BLOOD UREA NITROGEN) 24 MG/DL (6-23); CALCIUM, SERUM 8.7 MG/DL (8.5-10.4); CHLORIDE, SERUM 96 MMOL/L (96-112); CO2 (CARBON DIOXIDE) 30 MMOL/L (24-34); CREATININE 0.83 MG/DL (0.55-1.02); GFR AFRICAN AMERICAN 85 ML/MIN (>=60); GFR NON AFRICAN AMERICAN 73 ML/MIN (>=60); PHOSPHORUS, SERUM 3.8 MG/DL (2.5-4.5); POTASSIUM, SERUM 3.6 MMOL/L (3.5-5.3); SODIUM, SERUM 136 MMOL/L (135-148)
[2016-11-11 17:00] LABS: GLUCOSE, SERUM 171 MG/DL (60-99)
[2016-11-11 17:25] LABS: ANISOCYTOSIS 1+ (5-10/OIF) (0-5/OIF); BAND NEUTROPHILS 5 %; EOSINOPHILS 3 %; LYMPHOCYTES 2 %; METAMYELOCYTES 1 %; MONOCYTES 2 %; PLATELET ESTIMATE ADQ (ADEQUATE); POLYCHROMASIA 1+ (2-5/OIF) (0-1/OIF); SEGMENTED NEUTROPHIL (0) 87 %; TOTAL NUCLEATED CELLS 100
[2016-11-11 21:27] LABS: BASOPHILS 0.3 %; BASOPHILS ABSOLUTE 0.07 10/3/uL (0.0-0.16); EOSINOPHILS 0.7 %; HEMATOCRIT 21.9 % (36.0-48.0); HEMOGLOBIN 7.2 g/dL (12.0-16.0); IMMATURE GRANULOCYTES 2.6 %; LYMPHOCYTES 4.3 %; LYMPHOCYTES ABSOLUTE 1.15 10/3/uL (0.67-4.30); MEAN CORPUS HGB CONC 32.9 g/dL (32.0-36.0); MEAN CORPUSCULAR HEMOGLOB 30.8 pg (26.0-34.0); MEAN CORPUSCULAR VOLUME 93.6 fL (80-100); MEAN PLATELET VOLUME 9.1 fL (9.2-13.0); MONOCYTES 3.7 %; MONOCYTES ABSOLUTE 0.99 10/3/uL (0.21-1.20); NEUTROPHILS 88.4 %; NEUTROPHILS ABSOLUTE 23.71 10/3/uL (2.02-8.40); NUCLEATED RED BLOOD CELLS 0.5 /100WBC (0-0); PLATELET COUNT 201 10/3/uL (150-400); RBC DISTRIBUTION WIDTH 17.9 % (12.0-16.0); RED CELL COUNT 2.34 10/6/uL (4.0-5.6)
[2016-11-11 21:28] LABS: MANUAL DIFF NO %; WHITE BLOOD CELLS 26.8 10/3/uL (4.5-10.5)
[2016-11-11 21:44] LABS: BAND NEUTROPHILS 4 %; BUN (BLOOD UREA NITROGEN) 22 MG/DL (6-23); CALCIUM, SERUM 8.5 MG/DL (8.5-10.4); CHLORIDE, SERUM 94 MMOL/L (96-112); CO2 (CARBON DIOXIDE) 29 MMOL/L (24-34); CREATININE 0.76 MG/DL (0.55-1.02); GFR AFRICAN AMERICAN 95 ML/MIN (>=60); GFR NON AFRICAN AMERICAN 82 ML/MIN (>=60); GLUCOSE, SERUM 158 MG/DL (60-99); LYMPHOCYTES 2 %; LYMPHOCYTES ABSOLUTE (CALC) 0.54 10/3/uL (0.67-4.30); MONOCYTES 4 %; MONOCYTES ABSOLUTE (CALC) 1.07 10/3/uL (0.21-1.20); NEUTROPHILS ABSOLUTE (CALC) 25.19 10/3/uL (2.02-8.40); POTASSIUM, SERUM 3.9 MMOL/L (3.5-5.3); SEGMENTED NEUTROPHIL (0) 90 %; SODIUM, SERUM 135 MMOL/L (135-148); TOTAL NUCLEATED CELLS 100
[2016-11-11 21:45] LABS: ANISOCYTOSIS 1+ (5-10/OIF) (0-5/OIF); BASOPHILIC STIPPLING 1+ (2-5/OIF) (0-1/OIF); PLATELET ESTIMATE ADQ (ADEQUATE)
[2016-11-12 03:57] LABS: BE (BASE EXCESS) -0.8 MEQ/L (0 +/- 2.5); CARBOXYHEMOGLOBIN 1.7 % (0-3); HCO3 (ACTUAL BICARBONATE) 25.5 MEQ/L (23-27); HEMOBLOGIN CONTENT 7.5 G/DL (12-16); INSTRUMENT SERIAL # 8083; METHEMOGLOBIN 0.2 % (0-3); O2 CONTENT 10.3 VOL% (18-24); PCO2 (CO2 TENSION) 52 MMHG (35-45); PO2 (O2 TENSION) 105 MMHG (79-93); pH 7.31 (7.37-7.43)
[2016-11-12 03:58] LABS: ALLENS TEST Pos; MODE CMV; OPERATOR ID 17370; SAMPLE Arterial; TIDAL VOLUME 440 ML
[2016-11-12 05:40] LABS: MEAN CORPUSCULAR HEMOGLOB 30.9 pg (26.0-34.0); MEAN CORPUSCULAR VOLUME 93.7 fL (80-100); MEAN PLATELET VOLUME 9.3 fL (9.2-13.0); PLATELET COUNT 159 10/3/uL (150-400); RBC DISTRIBUTION WIDTH 17.9 % (12.0-16.0); RED CELL COUNT 2.23 10/6/uL (4.0-5.6); WHITE BLOOD CELLS 20.1 10/3/uL (4.5-10.5)
[2016-11-12 05:41] LABS: HEMATOCRIT 20.9 % (36.0-48.0); HEMOGLOBIN 6.9 g/dL (12.0-16.0); MANUAL DIFF YES %
[2016-11-12 05:47] LABS: ALBUMIN 2.6 G/DL (3.5-5.0); BUN (BLOOD UREA NITROGEN) 20 MG/DL (6-23); CALCIUM, SERUM 8.4 MG/DL (8.5-10.4); CHLORIDE, SERUM 97 MMOL/L (96-112); CO2 (CARBON DIOXIDE) 30 MMOL/L (24-34); CREATININE 0.69 MG/DL (0.55-1.02); DIRECT BILIRUBIN 0.4 MG/DL (0.0-0.4); GFR AFRICAN AMERICAN 105 ML/MIN (>=60); GFR NON AFRICAN AMERICAN 91 ML/MIN (>=60); GLUCOSE, SERUM 168 MG/DL (60-99); INDIRECT BILIRUBIN(NOT ORDER) 0.3 MG/DL (0.1-0.9); PHOSPHORUS, SERUM 3.2 MG/DL (2.5-4.5); POTASSIUM, SERUM 3.9 MMOL/L (3.5-5.3); SGOT(AST) 50 U/L (5-40); SGPT(ALT) 53 U/L (5-65); SODIUM, SERUM 136 MMOL/L (135-148); TOTAL BILIRUBIN 0.7 MG/DL (0-1.2); TOTAL PROTEIN 6.1 G/DL (6.0-8.5)
[2016-11-12 05:48] LABS: ALKALINE PHOSPHATASE 211 U/L (45-117)
[2016-11-12 06:38] LABS: ANISOCYTOSIS 1+ (5-10/OIF) (0-5/OIF); BAND NEUTROPHILS 5 %; LYMPHOCYTES 3 %; METAMYELOCYTES 1 %; MONOCYTES 1 %; MYELOCYTES 1 %; NEUTROPHILS ABSOLUTE (CALC) 18.89 10/3/uL (2.02-8.40); PLATELET ESTIMATE ADQ (ADEQUATE); POLYCHROMASIA 1+ (2-5/OIF) (0-1/OIF); SEGMENTED NEUTROPHIL (0) 89 %; TOTAL NUCLEATED CELLS 100; TOXIC GRANULATION 1+
[2016-11-12 09:10] LABS: ALLENS TEST Pos; BE (BASE EXCESS) 0.5 MEQ/L (0 +/- 2.5); CARBOXYHEMOGLOBIN 1.6 % (0-3); HCO3 (ACTUAL BICARBONATE) 28.7 MEQ/L (23-27); HEMOBLOGIN CONTENT 7.3 G/DL (12-16); INSTRUMENT SERIAL # 8083; METHEMOGLOBIN 0.4 % (0-3); MODE CMV; O2 CONTENT 10.7 VOL% (18-24); OPERATOR ID 14382; PCO2 (CO2 TENSION) 72 MMHG (35-45); PO2 (O2 TENSION) 261 MMHG (79-93); SAMPLE Arterial; TIDAL VOLUME 440 ML; pH 7.22 (7.37-7.43)
[2016-11-12 12:13] LABS: HEMATOCRIT 22.2 % (36.0-48.0); HEMOGLOBIN 7.2 g/dL (12.0-16.0); MEAN CORPUS HGB CONC 32.4 g/dL (32.0-36.0); MEAN CORPUSCULAR HEMOGLOB 30.4 pg (26.0-34.0); MEAN CORPUSCULAR VOLUME 93.7 fL (80-100); MEAN PLATELET VOLUME 9.6 fL (9.2-13.0); NUCLEATED RED BLOOD CELLS 0.3 /100WBC (0-0); PLATELET COUNT 152 10/3/uL (150-400); RED CELL COUNT 2.37 10/6/uL (4.0-5.6); WHITE BLOOD CELLS 22.6 10/3/uL (4.5-10.5)
[2016-11-12 12:14] LABS: MANUAL DIFF YES %
[2016-11-12 12:21] LABS: BUN (BLOOD UREA NITROGEN) 16 MG/DL (6-23); CALCIUM, SERUM 8.6 MG/DL (8.5-10.4); CHLORIDE, SERUM 97 MMOL/L (96-112); CO2 (CARBON DIOXIDE) 29 MMOL/L (24-34); GFR AFRICAN AMERICAN 110 ML/MIN (>=60); GFR NON AFRICAN AMERICAN 95 ML/MIN (>=60); GLUCOSE, SERUM 173 MG/DL (60-99); POTASSIUM, SERUM 3.9 MMOL/L (3.5-5.3); SODIUM, SERUM 136 MMOL/L (135-148)
[2016-11-12 12:30] LABS: ANISOCYTOSIS 1+ (5-10/OIF) (0-5/OIF); BAND NEUTROPHILS 14 %; IMMATURE GRANS ABSOLUTE (CALC) 0.45 10/3/uL (0.0-0.11); LYMPHOCYTES 5 %; LYMPHOCYTES ABSOLUTE (CALC) 1.13 10/3/uL (0.67-4.30); METAMYELOCYTES 2 %; MONOCYTES 4 %; NEUTROPHILS ABSOLUTE (CALC) 20.11 10/3/uL (2.02-8.40); PLATELET ESTIMATE ADQ (ADEQUATE); SEGMENTED NEUTROPHIL (0) 75 %; TOTAL NUCLEATED CELLS 100
[2016-11-12 14:34] LABS: ALLENS TEST Pos; BE (BASE EXCESS) 3.1 MEQ/L (0 +/- 2.5); HCO3 (ACTUAL BICARBONATE) 31.7 MEQ/L (23-27); HEMOBLOGIN CONTENT 7.6 G/DL (12-16); INSTRUMENT SERIAL # 8083; METHEMOGLOBIN 0.4 % (0-3); MODE CMV; O2 CONTENT 10.5 VOL% (18-24); PCO2 (CO2 TENSION) 81 MMHG (35-45); PO2 (O2 TENSION) 103 MMHG (79-93); SAMPLE Arterial; TIDAL VOLUME 460 ML; pH 7.21 (7.37-7.43)
[2016-11-12 16:12] LABS: PHOSPHORUS, SERUM 3.5 MG/DL (2.5-4.5)
[2016-11-12 16:13] LABS: BASOPHILS 0.2 %; BASOPHILS ABSOLUTE 0.04 10/3/uL (0.0-0.16); EOSINOPHILS 0.7 %; EOSINOPHILS ABSOLUTE 0.15 10/3/uL (0.0-0.53); HEMATOCRIT 22.4 % (36.0-48.0); HEMOGLOBIN 7.1 g/dL (12.0-16.0); IMMATURE GRANULOCYTES ABSOLUTE 0.42 10/3/uL (0.0-0.11); LYMPHOCYTES 4.7 %; LYMPHOCYTES ABSOLUTE 0.98 10/3/uL (0.67-4.30); MEAN CORPUS HGB CONC 31.7 g/dL (32.0-36.0); MEAN CORPUSCULAR HEMOGLOB 30.1 pg (26.0-34.0); MEAN CORPUSCULAR VOLUME 94.9 fL (80-100); MEAN PLATELET VOLUME 9.4 fL (9.2-13.0); MONOCYTES 2.5 %; MONOCYTES ABSOLUTE 0.52 10/3/uL (0.21-1.20); NEUTROPHILS 89.9 %; NEUTROPHILS ABSOLUTE 18.71 10/3/uL (2.02-8.40); NUCLEATED RED BLOOD CELLS 0.3 /100WBC (0-0); PLATELET COUNT 150 10/3/uL (150-400); RED CELL COUNT 2.36 10/6/uL (4.0-5.6); WHITE BLOOD CELLS 20.8 10/3/uL (4.5-10.5)
[2016-11-12 16:14] LABS: MANUAL DIFF NO %
[2016-11-12 17:37] LABS: ALLENS TEST Pos; BE (BASE EXCESS) -1.6 MEQ/L (0 +/- 2.5); CARBOXYHEMOGLOBIN 1.1 % (0-3); HCO3 (ACTUAL BICARBONATE) 27.5 MEQ/L (23-27); INSTRUMENT SERIAL # 8083; METHEMOGLOBIN 0.4 % (0-3); MODE CMV; O2 CONTENT 10.8 VOL% (18-24); OPERATOR ID 35188; PCO2 (CO2 TENSION) 77 MMHG (35-45); PO2 (O2 TENSION) 92 MMHG (79-93); SAMPLE Arterial; TIDAL VOLUME 470 ML; pH 7.17 (7.37-7.43)
[2016-11-12 18:23] LABS: BUN (BLOOD UREA NITROGEN) 17 MG/DL (6-23); CALCIUM, SERUM 8.6 MG/DL (8.5-10.4); CHLORIDE, SERUM 98 MMOL/L (96-112); CO2 (CARBON DIOXIDE) 27 MMOL/L (24-34); CREATININE 0.62 MG/DL (0.55-1.02); GFR AFRICAN AMERICAN 109 ML/MIN (>=60); GFR NON AFRICAN AMERICAN 94 ML/MIN (>=60); GLUCOSE, SERUM 156 MG/DL (60-99); SODIUM, SERUM 136 MMOL/L (135-148)
[2016-11-12 23:01] LABS: BASOPHILS 0.2 %; BASOPHILS ABSOLUTE 0.03 10/3/uL (0.0-0.16); EOSINOPHILS 0.3 %; EOSINOPHILS ABSOLUTE 0.05 10/3/uL (0.0-0.53); IMMATURE GRANULOCYTES 3.1 %; IMMATURE GRANULOCYTES ABSOLUTE 0.54 10/3/uL (0.0-0.11); LYMPHOCYTES 4.3 %; LYMPHOCYTES ABSOLUTE 0.75 10/3/uL (0.67-4.30); MEAN CORPUS HGB CONC 32.1 g/dL (32.0-36.0); MEAN CORPUSCULAR HEMOGLOB 30.6 pg (26.0-34.0); MEAN CORPUSCULAR VOLUME 95.4 fL (80-100); MEAN PLATELET VOLUME 9.7 fL (9.2-13.0); MONOCYTES 3.5 %; MONOCYTES ABSOLUTE 0.61 10/3/uL (0.21-1.20); NEUTROPHILS 88.6 %; NEUTROPHILS ABSOLUTE 15.32 10/3/uL (2.02-8.40); NUCLEATED RED BLOOD CELLS 0.6 /100WBC (0-0); PLATELET COUNT 166 10/3/uL (150-400); RED CELL COUNT 2.19 10/6/uL (4.0-5.6); WHITE BLOOD CELLS 17.3 10/3/uL (4.5-10.5)
[2016-11-12 23:03] LABS: BUN (BLOOD UREA NITROGEN) 17 MG/DL (6-23); CALCIUM, SERUM 8.4 MG/DL (8.5-10.4); CHLORIDE, SERUM 99 MMOL/L (96-112); CO2 (CARBON DIOXIDE) 28 MMOL/L (24-34); CREATININE 0.56 MG/DL (0.55-1.02); GFR AFRICAN AMERICAN 113 ML/MIN (>=60); GFR NON AFRICAN AMERICAN 97 ML/MIN (>=60); GLUCOSE, SERUM 140 MG/DL (60-99); POTASSIUM, SERUM 4.3 MMOL/L (3.5-5.3); SODIUM, SERUM 137 MMOL/L (135-148)
[2016-11-12 23:23] LABS: HEMATOCRIT 20.9 % (36.0-48.0); HEMOGLOBIN 6.7 g/dL (12.0-16.0)
[2016-11-12 23:58] LABS: ANISOCYTOSIS 1+ (5-10/OIF) (0-5/OIF); BAND NEUTROPHILS 1 %; EOSINOPHILS 1 %; EOSINOPHILS ABSOLUTE (CALC) 0.17 10/3/uL (0.0-0.53); LYMPHOCYTES 2 %; LYMPHOCYTES ABSOLUTE (CALC) 0.35 10/3/uL (0.67-4.30); NEUTROPHILS ABSOLUTE (CALC) 16.78 10/3/uL (2.02-8.40); RBC MORPHOLOGY ABN (NORMAL); SEGMENTED NEUTROPHIL (0) 96 %; TOTAL NUCLEATED CELLS 100
[2016-11-13 05:52] LABS: ALBUMIN 2.5 G/DL (3.5-5.0); BUN (BLOOD UREA NITROGEN) 20 MG/DL (6-23); CALCIUM, SERUM 8.9 MG/DL (8.5-10.4); CHLORIDE, SERUM 101 MMOL/L (96-112); CO2 (CARBON DIOXIDE) 25 MMOL/L (24-34); CREATININE 0.65 MG/DL (0.55-1.02); DIRECT BILIRUBIN 0.3 MG/DL (0.0-0.4); GFR AFRICAN AMERICAN 107 ML/MIN (>=60); GFR NON AFRICAN AMERICAN 93 ML/MIN (>=60); GLUCOSE, SERUM 151 MG/DL (60-99); INDIRECT BILIRUBIN(NOT ORDER) 0.3 MG/DL (0.1-0.9); PHOSPHORUS, SERUM 4.3 MG/DL (2.5-4.5); POTASSIUM, SERUM 4.6 MMOL/L (3.5-5.3); SGOT(AST) 51 U/L (5-40); SGPT(ALT) 56 U/L (5-65); SODIUM, SERUM 137 MMOL/L (135-148); TOTAL BILIRUBIN 0.6 MG/DL (0-1.2); TOTAL PROTEIN 6.5 G/DL (6.0-8.5)
[2016-11-13 05:57] LABS: ALKALINE PHOSPHATASE 248 U/L (45-117)
[2016-11-13 06:25] LABS: BASOPHILS 0.3 %; BASOPHILS ABSOLUTE 0.06 10/3/uL (0.0-0.16); EOSINOPHILS 0.1 %; EOSINOPHILS ABSOLUTE 0.03 10/3/uL (0.0-0.53); HEMATOCRIT 26.2 % (36.0-48.0); HEMOGLOBIN 8.5 g/dL (12.0-16.0); IMMATURE GRANULOCYTES 5.1 %; IMMATURE GRANULOCYTES ABSOLUTE 1.04 10/3/uL (0.0-0.11); LYMPHOCYTES 4.1 %; LYMPHOCYTES ABSOLUTE 0.83 10/3/uL (0.67-4.30); MEAN CORPUS HGB CONC 32.4 g/dL (32.0-36.0); MEAN CORPUSCULAR VOLUME 95.6 fL (80-100); MEAN PLATELET VOLUME 9.9 fL (9.2-13.0); MONOCYTES 3.3 %; MONOCYTES ABSOLUTE 0.66 10/3/uL (0.21-1.20); NEUTROPHILS 87.1 %; NEUTROPHILS ABSOLUTE 17.65 10/3/uL (2.02-8.40); NUCLEATED RED BLOOD CELLS 0.7 /100WBC (0-0); PLATELET COUNT 197 10/3/uL (150-400); RBC DISTRIBUTION WIDTH 17.3 % (12.0-16.0); RED CELL COUNT 2.74 10/6/uL (4.0-5.6); WHITE BLOOD CELLS 20.3 10/3/uL (4.5-10.5)
[2016-11-13 06:26] LABS: MANUAL DIFF NO %
[2016-11-13 06:47] LABS: PROCALCITONIN 2.71 ng/mL (<0.5)
[2016-11-13 07:40] LABS: BE (BASE EXCESS) -3.1 MEQ/L (0 +/- 2.5); INSTRUMENT SERIAL # 11843; PCO2 (CO2 TENSION) 74 MMHG (35-45); PO2 (O2 TENSION) 91 MMHG (79-93); pH 7.16 (7.37-7.43)
[2016-11-13 07:41] LABS: ALLENS TEST Pos; CARBOXYHEMOGLOBIN 0.9 % (0-3); HEMOBLOGIN CONTENT 8.4 G/DL (12-16); METHEMOGLOBIN 0.8 % (0-3); MODE CMV; O2 CONTENT 11.2 VOL% (18-24); OPERATOR ID 334499; SAMPLE Arterial; TIDAL VOLUME 480 ML
[2016-11-13 10:42] LABS: HEMOGLOBIN 7.4 g/dL (12.0-16.0); MEAN CORPUS HGB CONC 32.5 g/dL (32.0-36.0); MEAN CORPUSCULAR HEMOGLOB 30.6 pg (26.0-34.0); MEAN CORPUSCULAR VOLUME 94.2 fL (80-100); MEAN PLATELET VOLUME 9.9 fL (9.2-13.0); PLATELET COUNT 179 10/3/uL (150-400); RBC DISTRIBUTION WIDTH 17.7 % (12.0-16.0); RED CELL COUNT 2.42 10/6/uL (4.0-5.6); WHITE BLOOD CELLS 18.7 10/3/uL (4.5-10.5)
[2016-11-13 10:44] LABS: HEMATOCRIT 22.8 % (36.0-48.0); MANUAL DIFF YES %
[2016-11-13 10:51] LABS: BUN (BLOOD UREA NITROGEN) 21 MG/DL (6-23); CALCIUM, SERUM 8.3 MG/DL (8.5-10.4); CHLORIDE, SERUM 102 MMOL/L (96-112); CO2 (CARBON DIOXIDE) 26 MMOL/L (24-34); CREATININE 0.61 MG/DL (0.55-1.02); GFR AFRICAN AMERICAN 109 ML/MIN (>=60); GFR NON AFRICAN AMERICAN 94 ML/MIN (>=60); GLUCOSE, SERUM 142 MG/DL (60-99); POTASSIUM, SERUM 4.2 MMOL/L (3.5-5.3); SODIUM, SERUM 138 MMOL/L (135-148)
[2016-11-13 10:55] LABS: PARTIAL THROMBO TIME 93.1 SEC (22.5-37.2)
[2016-11-13 11:19] LABS: ASCORBIC ACID (UR NOT ORDER) NEG (NEG); BILIRUBIN, URINE NEGATIVE (NEG); KETONE, URINE NEGATIVE (NEG); LEUKOCYTE ESTERASE(NOT OR MOD (NEG); WBC (NOT ORDERED) (RFLEX) > 182 (0-5)
[2016-11-13 11:21] LABS: ANISOCYTOSIS 1+ (5-10/OIF) (0-5/OIF); BAND NEUTROPHILS 9 %; LYMPHOCYTES 2 %; LYMPHOCYTES ABSOLUTE (CALC) 0.37 10/3/uL (0.67-4.30); MONOCYTES 1 %; MONOCYTES ABSOLUTE (CALC) 0.19 10/3/uL (0.21-1.20); NEUTROPHILS ABSOLUTE (CALC) 18.14 10/3/uL (2.02-8.40); PLATELET ESTIMATE ADQ (ADEQUATE); SEGMENTED NEUTROPHIL (0) 88 %; TOTAL NUCLEATED CELLS 100; TOXIC GRANULATION 1+
[2016-11-13 11:22] LABS: POLYCHROMASIA 1+ (2-5/OIF) (0-1/OIF)
[2016-11-13 11:47] LABS: INTERNATIONAL NORMAL RATI 1.1 UNITS (-); PROTIME (NOT ORD) 13.6 SEC (12.0-14.5)
[2016-11-13 13:32] LABS: ALLENS TEST Pos; CARBOXYHEMOGLOBIN 1.1 % (0-3); HCO3 (ACTUAL BICARBONATE) 22.2 MEQ/L (23-27); HEMOBLOGIN CONTENT 8.4 G/DL (12-16); INSTRUMENT SERIAL # 8083; METHEMOGLOBIN 0.4 % (0-3); MODE CMV; O2 CONTENT 11.9 VOL% (18-24); OPERATOR ID 14382; PCO2 (CO2 TENSION) 53 MMHG (35-45); PO2 (O2 TENSION) 169 MMHG (79-93); SAMPLE Arterial; TIDAL VOLUME 480 ML; pH 7.24 (7.37-7.43)
[2016-11-13 16:23] LABS: GLUCOSE, SERUM 137 MG/DL (60-99)
[2016-11-13 19:12] LABS: HEMOGLOBIN 8.5 g/dL (12.0-16.0); MEAN CORPUS HGB CONC 32.2 g/dL (32.0-36.0); MEAN CORPUSCULAR HEMOGLOB 30.1 pg (26.0-34.0); MEAN CORPUSCULAR VOLUME 93.6 fL (80-100); MEAN PLATELET VOLUME 9.7 fL (9.2-13.0); PLATELET COUNT 198 10/3/uL (150-400); RBC DISTRIBUTION WIDTH 17.8 % (12.0-16.0); RED CELL COUNT 2.82 10/6/uL (4.0-5.6); WHITE BLOOD CELLS 19.5 10/3/uL (4.5-10.5)
[2016-11-13 19:14] LABS: HEMATOCRIT 26.4 % (36.0-48.0); MANUAL DIFF YES %
[2016-11-13 19:22] LABS: BUN (BLOOD UREA NITROGEN) 22 MG/DL (6-23); CALCIUM, SERUM 8.3 MG/DL (8.5-10.4); CHLORIDE, SERUM 102 MMOL/L (96-112); CO2 (CARBON DIOXIDE) 22 MMOL/L (24-34); CREATININE 0.68 MG/DL (0.55-1.02); GFR AFRICAN AMERICAN 106 ML/MIN (>=60); GFR NON AFRICAN AMERICAN 91 ML/MIN (>=60); PHOSPHORUS, SERUM 3.4 MG/DL (2.5-4.5); POTASSIUM, SERUM 4.1 MMOL/L (3.5-5.3); SODIUM, SERUM 139 MMOL/L (135-148)
[2016-11-13 19:34] LABS: BAND NEUTROPHILS 4 %; IMMATURE GRANS ABSOLUTE (CALC) 0.78 10/3/uL (0.0-0.11); LYMPHOCYTES 6 %; LYMPHOCYTES ABSOLUTE (CALC) 1.17 10/3/uL (0.67-4.30); METAMYELOCYTES 4 %; MONOCYTES 1 %; NEUTROPHILS ABSOLUTE (CALC) 17.36 10/3/uL (2.02-8.40); SEGMENTED NEUTROPHIL (0) 85 %; TOTAL NUCLEATED CELLS 100
[2016-11-13 19:35] LABS: ANISOCYTOSIS 1+ (5-10/OIF) (0-5/OIF); BASOPHILIC STIPPLING 1+ (2-5/OIF) (0-1/OIF); PLATELET ESTIMATE ADQ (ADEQUATE); TEARDROP SHAPED RBCS OCC (0-2/OIF)
[2016-11-13 22:55] LABS: HEMATOCRIT 25.2 % (36.0-48.0); HEMOGLOBIN 8.1 g/dL (12.0-16.0); MEAN CORPUS HGB CONC 32.1 g/dL (32.0-36.0); MEAN CORPUSCULAR HEMOGLOB 30.1 pg (26.0-34.0); MEAN CORPUSCULAR VOLUME 93.7 fL (80-100); MEAN PLATELET VOLUME 9.5 fL (9.2-13.0); PLATELET COUNT 190 10/3/uL (150-400); RBC DISTRIBUTION WIDTH 18.2 % (12.0-16.0); RED CELL COUNT 2.69 10/6/uL (4.0-5.6); WHITE BLOOD CELLS 16.6 10/3/uL (4.5-10.5)
[2016-11-13 22:56] LABS: BUN (BLOOD UREA NITROGEN) 23 MG/DL (6-23); CALCIUM, SERUM 8.3 MG/DL (8.5-10.4); CHLORIDE, SERUM 104 MMOL/L (96-112); CO2 (CARBON DIOXIDE) 24 MMOL/L (24-34); GFR AFRICAN AMERICAN 105 ML/MIN (>=60); GFR NON AFRICAN AMERICAN 90 ML/MIN (>=60); GLUCOSE, SERUM 146 MG/DL (60-99); MANUAL DIFF YES %; POTASSIUM, SERUM 4.2 MMOL/L (3.5-5.3); SODIUM, SERUM 138 MMOL/L (135-148); VANCOMYCIN TROUGH 16.5 MCG/ML (10.0-20.0)
[2016-11-13 23:11] LABS: BAND NEUTROPHILS 2 %; IMMATURE GRANS ABSOLUTE (CALC) 0.33 10/3/uL (0.0-0.11); LYMPHOCYTES 7 %; LYMPHOCYTES ABSOLUTE (CALC) 1.16 10/3/uL (0.67-4.30); MONOCYTES 3 %; MYELOCYTES 2 %; NEUTROPHILS ABSOLUTE (CALC) 14.61 10/3/uL (2.02-8.40); SEGMENTED NEUTROPHIL (0) 86 %; TOTAL NUCLEATED CELLS 100
[2016-11-13 23:12] LABS: PLATELET ESTIMATE ADQ (ADEQUATE)
[2016-11-13 23:13] LABS: ANISOCYTOSIS 1+ (5-10/OIF) (0-5/OIF)
[2016-11-13 23:14] LABS: HYPOCHROMIA 1+ (3-10/OIF) (0-2/OIF)
[2016-11-14 03:44] LABS: ALLENS TEST Pos; BE (BASE EXCESS) -3.4 MEQ/L (0 +/- 2.5); CARBOXYHEMOGLOBIN 1.1 % (0-3); HCO3 (ACTUAL BICARBONATE) 24.3 MEQ/L (23-27); HEMOBLOGIN CONTENT 9.5 G/DL (12-16); INSTRUMENT SERIAL # 8083; METHEMOGLOBIN 0.5 % (0-3); MODE CMV; O2 CONTENT 13.2 VOL% (18-24); OPERATOR ID 23712; PCO2 (CO2 TENSION) 58 MMHG (35-45); PO2 (O2 TENSION) 119 MMHG (79-93); SAMPLE Arterial; TIDAL VOLUME 480 ML; pH 7.24 (7.37-7.43)
[2016-11-14 05:13] LABS: HEMATOCRIT 25.6 % (36.0-48.0); HEMOGLOBIN 8.6 g/dL (12.0-16.0); MEAN CORPUS HGB CONC 33.6 g/dL (32.0-36.0); MEAN CORPUSCULAR HEMOGLOB 31.3 pg (26.0-34.0); MEAN CORPUSCULAR VOLUME 93.1 fL (80-100); MEAN PLATELET VOLUME 9.9 fL (9.2-13.0); PLATELET COUNT 188 10/3/uL (150-400); RBC DISTRIBUTION WIDTH 18.4 % (12.0-16.0); RED CELL COUNT 2.75 10/6/uL (4.0-5.6); WHITE BLOOD CELLS 15.3 10/3/uL (4.5-10.5)
[2016-11-14 05:16] LABS: ALBUMIN 2.1 G/DL (3.5-5.0); BUN (BLOOD UREA NITROGEN) 24 MG/DL (6-23); CALCIUM, SERUM 8.6 MG/DL (8.5-10.4); CHLORIDE, SERUM 103 MMOL/L (96-112); CO2 (CARBON DIOXIDE) 23 MMOL/L (24-34); CREATININE 0.67 MG/DL (0.55-1.02); DIRECT BILIRUBIN 0.2 MG/DL (0.0-0.4); GFR AFRICAN AMERICAN 106 ML/MIN (>=60); GFR NON AFRICAN AMERICAN 92 ML/MIN (>=60); GLUCOSE, SERUM 170 MG/DL (60-99); INDIRECT BILIRUBIN(NOT ORDER) 0.3 MG/DL (0.1-0.9); POTASSIUM, SERUM 3.7 MMOL/L (3.5-5.3); SGOT(AST) 40 U/L (5-40); SGPT(ALT) 57 U/L (5-65); SODIUM, SERUM 138 MMOL/L (135-148); TOTAL BILIRUBIN 0.5 MG/DL (0-1.2); TOTAL PROTEIN 5.6 G/DL (6.0-8.5)
[2016-11-14 05:17] LABS: MANUAL DIFF YES %
[2016-11-14 05:18] LABS: ALKALINE PHOSPHATASE 230 U/L (45-117)
[2016-11-14 06:10] LABS: BAND NEUTROPHILS 7 %; EOSINOPHILS 1 %; EOSINOPHILS ABSOLUTE (CALC) 0.15 10/3/uL (0.0-0.53); IMMATURE GRANS ABSOLUTE (CALC) 0.77 10/3/uL (0.0-0.11); LYMPHOCYTES 2 %; LYMPHOCYTES ABSOLUTE (CALC) 0.31 10/3/uL (0.67-4.30); METAMYELOCYTES 3 %; MONOCYTES 3 %; MONOCYTES ABSOLUTE (CALC) 0.46 10/3/uL (0.21-1.20); MYELOCYTES 2 %; NEUTROPHILS ABSOLUTE (CALC) 13.62 10/3/uL (2.02-8.40); PLATELET ESTIMATE ADQ (ADEQUATE); SEGMENTED NEUTROPHIL (0) 82 %; TOTAL NUCLEATED CELLS 100
[2016-11-14 06:11] LABS: ANISOCYTOSIS 1+ (5-10/OIF) (0-5/OIF); TOXIC GRANULATION 1+
[2016-11-14 10:34] LABS: HEMATOCRIT 24.6 % (36.0-48.0); MEAN CORPUS HGB CONC 32.5 g/dL (32.0-36.0); MEAN CORPUSCULAR HEMOGLOB 30.5 pg (26.0-34.0); MEAN CORPUSCULAR VOLUME 93.9 fL (80-100); MEAN PLATELET VOLUME 9.2 fL (9.2-13.0); PLATELET COUNT 166 10/3/uL (150-400); RBC DISTRIBUTION WIDTH 18.4 % (12.0-16.0); RED CELL COUNT 2.62 10/6/uL (4.0-5.6); WHITE BLOOD CELLS 15.8 10/3/uL (4.5-10.5)
[2016-11-14 10:35] LABS: MANUAL DIFF YES %
[2016-11-14 10:41] LABS: BUN (BLOOD UREA NITROGEN) 24 MG/DL (6-23); CALCIUM, SERUM 8.6 MG/DL (8.5-10.4); CHLORIDE, SERUM 105 MMOL/L (96-112); CO2 (CARBON DIOXIDE) 24 MMOL/L (24-34); CREATININE 0.67 MG/DL (0.55-1.02); GFR AFRICAN AMERICAN 106 ML/MIN (>=60); GFR NON AFRICAN AMERICAN 92 ML/MIN (>=60); GLUCOSE, SERUM 149 MG/DL (60-99); SODIUM, SERUM 139 MMOL/L (135-148)
[2016-11-14 10:48] LABS: PARTIAL THROMBO TIME > 150.0 SEC (22.5-37.2)
[2016-11-14 11:05] LABS: ANISOCYTOSIS 1+ (5-10/OIF) (0-5/OIF); BAND NEUTROPHILS 2 %; EOSINOPHILS 1 %; EOSINOPHILS ABSOLUTE (CALC) 0.16 10/3/uL (0.0-0.53); IMMATURE GRANS ABSOLUTE (CALC) 0.47 10/3/uL (0.0-0.11); LYMPHOCYTES 8 %; LYMPHOCYTES ABSOLUTE (CALC) 1.26 10/3/uL (0.67-4.30); METAMYELOCYTES 3 %; MONOCYTES 5 %; MONOCYTES ABSOLUTE (CALC) 0.79 10/3/uL (0.21-1.20); NEUTROPHILS ABSOLUTE (CALC) 13.11 10/3/uL (2.02-8.40); PLATELET ESTIMATE ADQ (ADEQUATE); SEGMENTED NEUTROPHIL (0) 81 %; TOTAL NUCLEATED CELLS 100
[2016-11-14 11:06] LABS: HYPOCHROMIA 1+ (3-10/OIF) (0-2/OIF); OVALOCYTES 1+ (3-10/OIF) (0-2/OIF); POLYCHROMASIA 1+ (2-5/OIF) (0-1/OIF)
[2016-11-14 16:22] LABS: HEMATOCRIT 24.5 % (36.0-48.0); MEAN CORPUS HGB CONC 32.7 g/dL (32.0-36.0); MEAN CORPUSCULAR HEMOGLOB 30.7 pg (26.0-34.0); MEAN CORPUSCULAR VOLUME 93.9 fL (80-100); MEAN PLATELET VOLUME 9.3 fL (9.2-13.0); PLATELET COUNT 174 10/3/uL (150-400); RBC DISTRIBUTION WIDTH 18.4 % (12.0-16.0); RED CELL COUNT 2.61 10/6/uL (4.0-5.6); WHITE BLOOD CELLS 13.9 10/3/uL (4.5-10.5)
[2016-11-14 16:25] LABS: MANUAL DIFF YES %
[2016-11-14 16:33] LABS: BUN (BLOOD UREA NITROGEN) 27 MG/DL (6-23); CALCIUM, SERUM 8.3 MG/DL (8.5-10.4); CHLORIDE, SERUM 104 MMOL/L (96-112); CO2 (CARBON DIOXIDE) 25 MMOL/L (24-34); CREATININE 0.64 MG/DL (0.55-1.02); GFR AFRICAN AMERICAN 108 ML/MIN (>=60); GFR NON AFRICAN AMERICAN 93 ML/MIN (>=60); GLUCOSE, SERUM 124 MG/DL (60-99); PHOSPHORUS, SERUM 3.1 MG/DL (2.5-4.5); POTASSIUM, SERUM 3.9 MMOL/L (3.5-5.3); SODIUM, SERUM 140 MMOL/L (135-148)
[2016-11-14 22:32] LABS: HEMATOCRIT 23.5 % (36.0-48.0); HEMOGLOBIN 7.8 g/dL (12.0-16.0); MEAN CORPUS HGB CONC 33.2 g/dL (32.0-36.0); MEAN CORPUSCULAR HEMOGLOB 31.3 pg (26.0-34.0); MEAN CORPUSCULAR VOLUME 94.4 fL (80-100); MEAN PLATELET VOLUME 9.3 fL (9.2-13.0); PLATELET COUNT 165 10/3/uL (150-400); RBC DISTRIBUTION WIDTH 18.3 % (12.0-16.0); RED CELL COUNT 2.49 10/6/uL (4.0-5.6); WHITE BLOOD CELLS 13.4 10/3/uL (4.5-10.5)
[2016-11-14 22:38] LABS: MANUAL DIFF YES %
[2016-11-14 22:46] LABS: BUN (BLOOD UREA NITROGEN) 25 MG/DL (6-23); CALCIUM, SERUM 8.1 MG/DL (8.5-10.4); CHLORIDE, SERUM 104 MMOL/L (96-112); CO2 (CARBON DIOXIDE) 24 MMOL/L (24-34); CREATININE 0.62 MG/DL (0.55-1.02); GFR AFRICAN AMERICAN 109 ML/MIN (>=60); GFR NON AFRICAN AMERICAN 94 ML/MIN (>=60); GLUCOSE, SERUM 148 MG/DL (60-99); POTASSIUM, SERUM 4.1 MMOL/L (3.5-5.3); SODIUM, SERUM 138 MMOL/L (135-148)
[2016-11-15 00:15] LABS: ANISOCYTOSIS 1+ (5-10/OIF) (0-5/OIF); BAND NEUTROPHILS 2 %; BASOPHILIC STIPPLING 1+ (2-5/OIF) (0-1/OIF); LYMPHOCYTES 7 %; LYMPHOCYTES ABSOLUTE (CALC) 0.94 10/3/uL (0.67-4.30); METAMYELOCYTES 5 %; MONOCYTES 4 %; MONOCYTES ABSOLUTE (CALC) 0.54 10/3/uL (0.21-1.20); MYELOCYTES 1 %; NEUTROPHILS ABSOLUTE (CALC) 11.12 10/3/uL (2.02-8.40); PLATELET ESTIMATE ADQ (ADEQUATE); POLYCHROMASIA 1+ (2-5/OIF) (0-1/OIF); SEGMENTED NEUTROPHIL (0) 81 %; TOTAL NUCLEATED CELLS 100
[2016-11-15 04:40] LABS: ALLENS TEST Pos; BE (BASE EXCESS) -5.2 MEQ/L (0 +/- 2.5); CARBOXYHEMOGLOBIN 1.1 % (0-3); HCO3 (ACTUAL BICARBONATE) 22.8 MEQ/L (23-27); HEMOBLOGIN CONTENT 9.1 G/DL (12-16); INSTRUMENT SERIAL # 8083; METHEMOGLOBIN 0.4 % (0-3); MODE CMV; O2 CONTENT 12.3 VOL% (18-24); OPERATOR ID 13415; PCO2 (CO2 TENSION) 59 MMHG (35-45); PO2 (O2 TENSION) 88 MMHG (79-93); SAMPLE Arterial; TIDAL VOLUME 480 ML; pH 7.21 (7.37-7.43)
[2016-11-15 04:55] LABS: PARTIAL THROMBO TIME 114.8 SEC (22.5-37.2)
[2016-11-15 04:57] LABS: HEMOGLOBIN 8.4 g/dL (12.0-16.0); MEAN CORPUS HGB CONC 32.3 g/dL (32.0-36.0); MEAN CORPUSCULAR HEMOGLOB 30.4 pg (26.0-34.0); MEAN CORPUSCULAR VOLUME 94.2 fL (80-100); MEAN PLATELET VOLUME 9.6 fL (9.2-13.0); NUCLEATED RED BLOOD CELLS 0.5 /100WBC (0-0); PLATELET COUNT 178 10/3/uL (150-400); RBC DISTRIBUTION WIDTH 18.4 % (12.0-16.0); RED CELL COUNT 2.76 10/6/uL (4.0-5.6); WHITE BLOOD CELLS 14.9 10/3/uL (4.5-10.5)
[2016-11-15 04:58] LABS: BUN (BLOOD UREA NITROGEN) 23 MG/DL (6-23); CALCIUM, SERUM 8.6 MG/DL (8.5-10.4); CHLORIDE, SERUM 104 MMOL/L (96-112); CO2 (CARBON DIOXIDE) 23 MMOL/L (24-34); CREATININE 0.59 MG/DL (0.55-1.02); GFR AFRICAN AMERICAN 111 ML/MIN (>=60); GFR NON AFRICAN AMERICAN 96 ML/MIN (>=60); GLUCOSE, SERUM 152 MG/DL (60-99); PHOSPHORUS, SERUM 3.3 MG/DL (2.5-4.5); POTASSIUM, SERUM 3.9 MMOL/L (3.5-5.3); SODIUM, SERUM 138 MMOL/L (135-148)
[2016-11-15 04:59] LABS: MANUAL DIFF YES %
[2016-11-15 06:22] LABS: ANISOCYTOSIS 1+ (5-10/OIF) (0-5/OIF); BAND NEUTROPHILS 3 %; IMMATURE GRANS ABSOLUTE (CALC) 0.15 10/3/uL (0.0-0.11); LYMPHOCYTES 9 %; LYMPHOCYTES ABSOLUTE (CALC) 1.34 10/3/uL (0.67-4.30); METAMYELOCYTES 1 %; MONOCYTES 4 %; NEUTROPHILS ABSOLUTE (CALC) 12.81 10/3/uL (2.02-8.40); PLATELET ESTIMATE ADQ (ADEQUATE); SEGMENTED NEUTROPHIL (0) 83 %; TOTAL NUCLEATED CELLS 100
[2016-11-15 15:50] LABS: HEMATOCRIT 25.3 % (36.0-48.0); HEMOGLOBIN 8.4 g/dL (12.0-16.0); MEAN CORPUS HGB CONC 33.2 g/dL (32.0-36.0); MEAN CORPUSCULAR HEMOGLOB 31.3 pg (26.0-34.0); MEAN CORPUSCULAR VOLUME 94.4 fL (80-100); MEAN PLATELET VOLUME 9.6 fL (9.2-13.0); PLATELET COUNT 182 10/3/uL (150-400); RBC DISTRIBUTION WIDTH 18.3 % (12.0-16.0); RED CELL COUNT 2.68 10/6/uL (4.0-5.6); WHITE BLOOD CELLS 16.8 10/3/uL (4.5-10.5)
[2016-11-15 15:55] LABS: MANUAL DIFF YES %
[2016-11-15 16:02] LABS: BUN (BLOOD UREA NITROGEN) 22 MG/DL (6-23); CALCIUM, SERUM 8.2 MG/DL (8.5-10.4); CHLORIDE, SERUM 104 MMOL/L (96-112); CO2 (CARBON DIOXIDE) 24 MMOL/L (24-34); CREATININE 0.54 MG/DL (0.55-1.02); GFR AFRICAN AMERICAN 114 ML/MIN (>=60); GFR NON AFRICAN AMERICAN 98 ML/MIN (>=60); PHOSPHORUS, SERUM 2.4 MG/DL (2.5-4.5); POTASSIUM, SERUM 3.3 MMOL/L (3.5-5.3); SODIUM, SERUM 138 MMOL/L (135-148)
[2016-11-15 16:03] LABS: GLUCOSE, SERUM 142 MG/DL (60-99)
[2016-11-15 16:38] LABS: BAND NEUTROPHILS 4 %; EOSINOPHILS 6 %; EOSINOPHILS ABSOLUTE (CALC) 1.01 10/3/uL (0.0-0.53); IMMATURE GRANS ABSOLUTE (CALC) 0.34 10/3/uL (0.0-0.11); LYMPHOCYTES 6 %; LYMPHOCYTES ABSOLUTE (CALC) 1.01 10/3/uL (0.67-4.30); MONOCYTES 2 %; MONOCYTES ABSOLUTE (CALC) 0.34 10/3/uL (0.21-1.20); MYELOCYTES 2 %; NEUTROPHILS ABSOLUTE (CALC) 14.11 10/3/uL (2.02-8.40); PLATELET ESTIMATE ADQ (ADEQUATE); SEGMENTED NEUTROPHIL (0) 80 %; TOTAL NUCLEATED CELLS 100
[2016-11-15 16:47] LABS: ANISOCYTOSIS 1+ (5-10/OIF) (0-5/OIF); BASOPHILIC STIPPLING 1+ (2-5/OIF) (0-1/OIF)
[2016-11-15 16:48] LABS: HYPOCHROMIA 1+ (3-10/OIF) (0-2/OIF)
[2016-11-15 16:49] LABS: SMUDGE CELLS RARE
== END 2016-11-15 17:48 | disposition expired | DRG 510 ==
LOC: MIC 18:19
PROVIDERS: Internal Medicine; Internal Medicine Critical Care Medicine; Internal Medicine Infectious Disease; Internal Medicine Nephrology; Internal Medicine Pulmonary Disease
PROC: 0PSH04Z Reposition Right Radius with Internal Fixation Device, Open Approach (ICD-10-PCS; principal; 2016-10-29)
PROC: 5A1955Z Respiratory Ventilation, Greater than 96 Consecutive Hours (ICD-10-PCS; principal; 2016-10-29)
PROC: 0BH17EZ Insertion of Endotracheal Airway into Trachea, Via Natural or Artificial Opening (ICD-10-PCS; 2016-10-29)
PROC: 0PSK04Z Reposition Right Ulna with Internal Fixation Device, Open Approach (ICD-10-PCS; 2016-10-29)
PROC: 5A1D00Z (ICD-10-PCS; 2016-10-29)
PROC: 5A1955Z Respiratory Ventilation, Greater than 96 Consecutive Hours (ICD-10-PCS; 2016-10-29)
PROC: 5A1D60Z (ICD-10-PCS; 2016-11-03)
PROC: 0PUH0JZ Supplement Right Radius with Synthetic Substitute, Open Approach (ICD-10-PCS; 2016-11-09)
PROC: 30233N1 Transfusion of Nonautologous Red Blood Cells into Peripheral Vein, Percutaneous Approach (ICD-10-PCS; 2016-11-09)
DX: S52.571A Other intraarticular fracture of lower end of right radius, initial encounter for closed fracture (principal); J95.821 Acute postprocedural respiratory failure; R65.21 Severe sepsis with septic shock; N17.0 Acute kidney failure with tubular necrosis; G92 Toxic encephalopathy; I47.2 Ventricular tachycardia; J15.9 Unspecified bacterial pneumonia; A41.9 Sepsis, unspecified organism; J44.0 Chronic obstructive pulmonary disease with (acute) lower respiratory infection; J44.9 Chronic obstructive pulmonary disease, unspecified; J18.9 Pneumonia, unspecified organism; S42.351A Displaced comminuted fracture of shaft of humerus, right arm, initial encounter for closed fracture; Z68.42 Body mass index [BMI] 45.0-49.9, adult; B37.49 Other urogenital candidiasis; G47.33 Obstructive sleep apnea (adult) (pediatric); N18.9 Chronic kidney disease, unspecified; Z96.653 Presence of artificial knee joint, bilateral; E78.5 Hyperlipidemia, unspecified; Z51.5 Encounter for palliative care; D64.9 Anemia, unspecified; E87.5 Hyperkalemia; S52.001A Unspecified fracture of upper end of right ulna, initial encounter for closed fracture; S52.181A Other fracture of upper end of right radius, initial encounter for closed fracture; S52.611A Displaced fracture of right ulna styloid process, initial encounter for closed fracture; S52.091A Other fracture of upper end of right ulna, initial encounter for closed fracture; S52.121A Displaced fracture of head of right radius, initial encounter for closed fracture; F17.210 Nicotine dependence, cigarettes, uncomplicated; W10.8XXA Fall (on) (from) other stairs and steps, initial encounter; W10.9XXA Fall (on) (from) unspecified stairs and steps, initial encounter; F41.8 Other specified anxiety disorders; E66.01 Morbid (severe) obesity due to excess calories; E78.2 Mixed hyperlipidemia; E83.42 Hypomagnesemia; E87.6 Hypokalemia; F32.9 Major depressive disorder, single episode, unspecified; F41.9 Anxiety disorder, unspecified; Z66 Do not resuscitate; I12.9 Hypertensive chronic kidney disease with stage 1 through stage 4 chronic kidney disease, or unspecified chronic kidney disease; Y92.018 Other place in single-family (private) house as the place of occurrence of the external cause; Z98.84 Bariatric surgery status; Y92.019 Unspecified place in single-family (private) house as the place of occurrence of the external cause; Z82.49 Family history of ischemic heart disease and other diseases of the circulatory system; Z91.81 History of falling; Z82.3 Family history of stroke; Z79.84 Long term (current) use of oral hypoglycemic drugs; Z79.899 Other long term (current) drug therapy; Z88.5 Allergy status to narcotic agent; Z80.8 Family history of malignant neoplasm of other organs or systems; Z88.8 Allergy status to other drugs, medicaments and biological substances; Z88.6 Allergy status to analgesic agent; Z98.890 Other specified postprocedural states; Z90.710 Acquired absence of both cervix and uterus
CPT/HCPCS: 31720; 36415; 36430; 36569; 36600; 71010; 71250; 73030-RT; 73080-RT; 73110-RT; 73200-RT; 73560-LT; 73630-50; 73700-LT; 74000; 74176; 76775; 80048; 80053; 80069; 80074; 80076; 80202; 81001; 82330; 82533; 82550; 82553; 82607; 82728; 82746; 82805; 82947; 82962; 83036; 83540; 83550; 83605; 83615; 83735; 83880; 84100; 84134; 84145; 84439; 84443; 84484; 85014; 85018; 85025; 85045; 85610; 85730; 86850; 86870; 86900; 86901; 86902; 86905; 86920; 86922; 87040; 87070; 87077; 87086; 87102; 87186; 87205; 87385; 87389; 87449; 87493; 87493-59; 87641; 88112; 88305; 88311; 90945; 93005; 93308; 93970; 93975; 94002; 94003; 94640; 94660; 94770; 96372; 96374; 96523; 99285; A9270-GY; C1713; C1751; C1752; C1776; C8929; C9113; G0257; G0463; J0330; J0360; J0456; J0610; J0690; J1170; J1205; J1450; J1720; J2185; J2405; J2543; J2710; J2795; J3010; J3370; P9016; P9045; P9047; Q9957